=== PATIENT | male | born 1980 | race Caucasian/White ===

== ENCOUNTER 2016-09-15 09:13 | Inpatient (IN) | payer OTHER ==
[2016-09-15 09:21] VITALS: BMI 20.2
--- NOTE | 2016-09-15 11:21 | HP ---
COWS - Scale Resting Pulse: 0= [place] 80 or Below Sweatin=Flushed/Facial Moisture Restless Observation: 1= Difficult to Sit Still Pupil Size: 0= Normal to Room Light Bone or Joint Aches: 2= Severe Diffuse Aches Runny Nose/ Eye Tearin= Runny Nose/Eyes GI Upset > 30mins: 1= Stomach Cramp Tremor Observation: 2= Slight Tremor Visible Yawning Observation: 2= >3x During Session Anxiety or Irritability: 2=Irritable/Anxious Goose Flesh Skin: 3=Piloerection COWS Score: 17 CIWA Score - CIWA Score Nausea/Vomitin-Mild Nausea/No Vomiting Muscle Tremors: 4-Moderate,w/Arms Extend Anxiety: 4-Mod. Anxious/Guarded Agitation: 4-Moderately Restless Paroxysmal Sweats: 3 Orientation: 0-Oriented Tacttile Disturbances: 0-None Auditory Disturbances: 0-None Visual Disturbances: 0-None Headache: 0-None Present CIWA-Ar Total Score: 16 Admission ROS [facility] - HPI Chief Complaint: I need to get my life back and get it together. Allergies/Adverse Reactions: Allergies Allergy/AdvReac Type Severity Reaction Status Date / Time No Known Allergies Allergy Verified 09/15/16 09:43 History of Present Illness: pt is a 36yr old male with a history of alcohol and heroin dependence seeking detox for treatment. Exam Limitations: No Limitations - Ebola screening Have you traveled outside of the country in the last 21 days: No Have you had contact with anyone from an Ebola affected area: No Have you been sick,other than usual withdrawal symptoms: No Do you have a fever: No - Review of Systems Constitutional: Chills, Diaphoresis, Loss of Appetite, Night Sweats, Unintentional Wgt. Loss EENT: reports: Tearing, Nose Congestion Respiratory: reports: No Symptoms reported Cardiac: reports: No Symptoms Reported GI: reports: Constipated, Nausea, Poor Appetite, Poor Fluid Intake, Indigestion : reports: No Symptoms Reported Musculoskeletal: reports: Back Pain, Joint Pain, Muscle Pain Integumentary: reports: Flushing, Sweating Endocrine: reports: Excessive Sweating, Flushing, Intolerance to Cold, Intolerance to Heat Hematology: reports: No Symptoms Reported Psychiatric: reports: Judgement Intact, Mood/Affect Appropiate, Orientated x3, Agitated, Anxious Other Systems: Reviewed and Negative Patient History - Patient Medical History Hx Anemia: No Hx Asthma: No Hx Chronic Obstructive Pulmonary Disease (COPD): No Hx Cancer: No Hx Cardiac Disorders: No Hx Congestive Heart Failure: No Hx Hypertension: No Hx Hypercholesterolemia: No Hx Pacemaker: No HX Cerebrovascular Accident: No Hx Seizures: No Hx Dementia: No Hx Diabetes: No Hx Gastrointestinal Disorders: Yes (acid reflux) Hx Liver Disease: No Hx Genitourinary Disorders: No Hx Sexually Transmitted Disorders: No Hx Renal Disease (ESRD): No Hx Thyroid Disease: No Hx Human Immunodeficiency Virus (HIV): No (NEGATIVE HX) Hx Hepatitis C: No (negative) Hx Depression: Yes Hx Suicide Attempt: No Hx Bipolar Disorder: No Hx Schizophrenia: No - Patient Surgical History Past Surgical History: No Hx Neurologic Surgery: No Hx Cataract Extraction: No Hx Cardiac Surgery: No Hx Lung Surgery: No Hx Breast Surgery: No Hx Breast Biopsy: No Hx Abdominal Surgery: No Hx Appendectomy: No Hx Cholecystectomy: No Hx Genitourinary Surgery: No Hx Section: No Hx Orthopedic Surgery: No Anesthesia Reaction: No - PPD History Previous Implant?: Yes Documented Results: Negative w/proof Implanted On Prior [facility] Admission?: Yes Date: 02/03/16 Results: 0 mm PPD to be Administered?: No - Reproductive History Patient is a Female of Child Bearing Age (11 -55 yrs old): No - Smoking Cessation Smoking history: Current every day smoker Have you smoked in the past 12 months: Yes Aproximately how many cigarettes per day: 10 Cigars Per Day: 0 Hx Chewing Tobacco Use: No Initiated information on smoking cessation: Yes 'Breaking Loose' booklet given: 09/15/16 - Substance & Tx. History Hx Alcohol Use: Yes Hx Substance Use: Yes Substance Use Type: Alcohol, Cocaine, Heroin Hx Substance Use Treatment: Yes - Substances Abused Heroin Route: Injection Frequency: Daily Amount used: 10 bags Age of first use: 24 Date of Last Use: 09/15/16 Crack Route: Smoking Frequency: Daily Amount used: $20 Age of first use: 26 Date of Last Use: 09/14/16 Alcohol-beer/wine Route: Oral Frequency: Daily Amount used: 3-6 (12 oz.)/1 pt. Age of first use: 16 Date of Last Use: 09/14/16 Family Disease History - Family Disease History Family Disease History: CA: Grandparent (colon CA-), Father (??KIDNEY/ LUNG-) Admission Physical Exam [facility] - Vital Signs Vital Signs: Vital Signs - 24 hr 09/15/16 09:19 Temperature 98.0 F Pulse Rate 59 L Respiratory 18 Rate Blood Pressure 106/69 - Physical General Appearance: Yes: Appropriately Dressed, Moderate Distress, Thin, Tremorous, Irritable, Sweating, Anxious HEENTM: Yes: Normal Voice, Nasal Congestion, Rhinorrhea Respiratory: Yes: Lungs Clear, Normal Breath Sounds, No Respiratory Distress Neck: Yes: No masses,lesions,Nodules Breast: Yes: Within Normal Limits Cardiology: Yes: Regular Rhythm, Regular Rate, S1, S2 Abdominal: Yes: Normal Bowel Sounds, Non Tender, Soft Genitourinary: Yes: Within Normal Limits Back: Yes: Normal Inspection Musculoskeletal: Yes: full range of Motion, Gait Steady, Back pain Extremities: Yes: Normal Capillary Refill, Normal Inspection, Non-Tender, Tremors Neurological: Yes: Fully Oriented, Alert, Normal Response Integumentary: Yes: Normal Color, Diaphoresis, Track Med[place]ros Lymphatic: Yes: Within Normal Limits - Diagnostic (1) Cellulitis of right forearm Current Visit: Yes Status: Acute (2) Cocaine dependence, uncomplicated Current Visit: Yes Status: Chronic (3) Nicotine dependence Current Visit: Yes Status: Chronic Qualifiers: Nicotine product type: cigarettes Substance use status: uncomplicated Qualified Code(s): F17.210 - Nicotine dependence, cigarettes, uncomplicated (4) Opioid dependence with withdrawal Current Visit: Yes Status: Chronic Cleared for Admission [facility] - Detox or Rehab [facility] Level of Care: Medically Managed Detox Regimen/Protocol: Methadone/Valium [facility] Breath Alcohol Content Breath Alcohol Content: 0 Urine Drug Screen - Results Drug Screen Negative: No Urine Drug Screen Results: JOSSIE-Cocaine, OPI-Opiates, OXY-Oxycodone
[2016-09-15] MEDS ORDERED: MENTHOL/PHENOL 1 EACH UD MM PRN (11:23)
[2016-09-15] MEDS ORDERED: MAG HYDROX/AL HYDROX/SIMETH 30 ML UNIT-DOSE CUP PO PRN (11:23)
[2016-09-15] MEDS ORDERED: diphenhydrAMINE HCL 50 MG CAPSULE PO PRN (11:23)
[2016-09-15] MEDS ORDERED: guaiFENesin/D-METHORPHAN HB 10 ML UNIT-DOSE CUPS PO PRN (11:23)
[2016-09-15] MEDS ORDERED: MAGNESIUM CITRATE 300 ML BOTTLE PO PRN (11:23)
[2016-09-15] MEDS ORDERED: MAGNESIUM HYDROX 2400MG/30ML ORAL SUSPENSION 30 ML CUP PO PRN (11:23)
[2016-09-15] MEDS ORDERED: ACETAMINOPHEN 325 MG TABLET (FP) PO PRN (11:23)
[2016-09-15] MEDS ORDERED: LOPERAMIDE HCL 2 MG CAPSULE PO PRN (11:23)
[2016-09-15] MEDS ORDERED: NICOTINE POLACRILEX 4 MG GUM BUC PRN (11:23)
[2016-09-15] MEDS ORDERED: diazePAM 5 MG TABLET PO ONE (11:42)
[2016-09-15] MEDS ORDERED: METHADONE HCL 10 MG TABLET (FOR DETOX USE ONLY) PO ONE ×2 (11:42→23:00)
[2016-09-15] MEDS: diazePAM 5 MG TABLET PO SCH ×2 (13:42→22:23)
--- NOTE | 2016-09-15 15:28 | EKG ---
Test Reason : Blood Pressure : / mmHG Vent. Rate : 050 BPM Atrial Rate : 050 BPM P-R Int : 176 ms QRS Dur : 098 ms QT Int : 430 ms P-R-T Axes : 047 078 051 degrees QTc Int : 392 ms SINUS BRADYCARDIA OTHERWISE NORMAL ECG NO PREVIOUS ECGS AVAILABLE Confirmed by MAURO BERNSTEIN MD ([id number]) on 09/15/2016 3:27:58 PM Referred By: Confirmed By:MAURO BERNSTEIN MD
--- NOTE | 2016-09-15 16:51 | CONSULT ---
[facility] Psychiatric Consult - Data Date of interview: 09/15/16 Admission source: [facility] Identifying data: Another admission to [facility] for this 36 y/o male seeking detox treatment on for alcohol,heroin and cocaine dependence.Patient is without children,now domiciled and employed. Substance Abuse History: - Smoking Cessation. Smoking history: Current every day smoker. Have you smoked in the past 12 months: Yes. Aproximately how many cigarettes per day: 10. Cigars Per Day: 0. Hx Chewing Tobacco Use: No. Initiated information on smoking cessation: Yes. 'Breaking Loose' booklet given : 09/15/16. - Substance & Tx. History. Hx Alcohol Use: Yes. Hx Substance Use : Yes. Substance Use Type: Alcohol, Cocaine, Heroin. Hx Substance Use Treatment: Yes. - Substances Abused. Heroin. Route: Injection. Frequency : Daily. Amount used: 10 bags. Age of first use: 24. Date of Last Use: . Crack. Route: Smoking. Frequency: Daily. Amount used: $20. Age of first use: 26. Date of Last Use: 09/14/16. Alcohol-beer/wine. Route: Oral. Frequency: Daily. Amount used: 3-6 (12 oz.)/1 pt. Age of first use: 16. Date of Last Use: 09/14/16. Confirmed by the patient in this interview. Medical History: GERD. Psychiatric History: Patient,in this encounter,provided a totally different version of his longitudinal history.Mr Badillo simply denies ever having psychiatric issues.However,a previous encounter in January 2016 generated a history as follows (imported note for the purpose of establishing a more accurate profile : " first contact with a psychiatrist : 2002 during treatment in an inpatient rehabilitation center.Diagnosed with MDD and treated over past 10 years with various medications.Used to be on Zoloft and Remeron.Stopped taking these drugs because of intolerable side effects.Recently (less than two years ago) the patient was started by a private psychiatrist,Dr Loomis from [place],on bupropion and suboxone.Mr Badillo reportedly stopped seeing Dr Loomis (he was discharged from his service) and got switched to venlafaxine at [facility] by the [facility] psychiatrist about 8 months ago.Patient denies history of suicide attempts and he requests to continue treatment with effexor 37.5 mg daily in this hospital course ".In this presentation,Mr Aby decided to misrepresent his psychiatric history with the exception of complaint of chronic insomnia. Physical/Sexual Abuse/Trauma History: Patient denies. Additional Comment: Urine Drug Screen Results: JOSSIE-Cocaine, OPI-Opiates, OXY- Oxycodone.Noted. Mental Status Exam - Mental Status Exam Alert and Oriented to: Time, Place, Person Cognitive Function: Good Patient Appearance: Well Groomed Mood: Nervous, Hopeful Affect: Appropriate, Normal Range Patient Behavior: Fatigued, Appropriate, Cooperative Speech Pattern: Clear Voice Loudness: Normal Thought Process: Goal Oriented Thought Disorder: Not Present Hallucinations: Denies Suicidal Ideation: Denies Homicidal Ideation: Denies Insight/Judgement: Poor Sleep: Poorly, Difficulty falling asleep Appetite: Good Muscle strength/Tone: Normal Gait/Station: Normal Psychiatric Findings - Problem List ([place] 1, 2,3) (1) Alcohol dependence Current Visit: Yes Status: Acute (2) Cocaine dependence, uncomplicated Current Visit: Yes Status: Acute (3) Opioid dependence with withdrawal Current Visit: Yes Status: Acute (4) Nicotine dependence Current Visit: Yes Status: Acute Qualifiers: Nicotine product type: cigarettes Substance use status: uncomplicated Qualified Code(s): F17.210 - Nicotine dependence, cigarettes, uncomplicated (5) Substance induced mood disorder Current Visit: Yes Status: Acute - Initial Treatment Plan Initial Treatment Plan: Psychoeducation.Detoxification in progress.Zolpidem 10 mg po hs.Side effects/benefits discussed with patient.he agrees with this plan.Observation.
[2016-09-15] MEDS: diazePAM 5 MG TABLET PO PRN (19:10)
[2016-09-15 20:08] LABS: URINE APPEARANCE CLEAR; URINE BILIRUBIN NEGATIVE (NEGATIVE); URINE BLOOD NEGATIVE (NEGATIVE); URINE COLOR YELLOW; URINE GLUCOSE (UA) NEGATIVE (NEGATIVE); URINE KETONE NEGATIVE (NEGATIVE); URINE LEUK ESTERASE NEGATIVE (NEGATIVE); URINE NITRITE NEGATIVE (NEGATIVE); URINE PROTEIN NEGATIVE (NEGATIVE); URINE UROBILINOGEN NEGATIVE E.U./dl (0.2-1.0)
[2016-09-15] MEDS: THIAMINE HCL 100 MG TABLET (FP) PO SCH (22:23)
[2016-09-15] MEDS: ZOLPIDEM TARTRATE 5 MG TABLET PO PRN (22:25)
[2016-09-16] MEDS: diazePAM 5 MG TABLET PO SCH ×3 (05:30→22:22)
[2016-09-16] MEDS ORDERED: METHADONE HCL 10 MG TABLET (FOR DETOX USE ONLY) PO SCH (10:00)
[2016-09-16 10:09] LABS: URINE APPEARANCE CLEAR; URINE BILIRUBIN NEGATIVE (NEGATIVE); URINE BLOOD NEGATIVE (NEGATIVE); URINE COLOR LTYELLOW; URINE GLUCOSE (UA) NEGATIVE (NEGATIVE); URINE KETONE NEGATIVE (NEGATIVE); URINE LEUK ESTERASE NEGATIVE (NEGATIVE); URINE NITRITE NEGATIVE (NEGATIVE); URINE PROTEIN NEGATIVE (NEGATIVE); URINE UROBILINOGEN NEGATIVE E.U./dl (0.2-1.0)
[2016-09-16 10:13] LABS: MCH 27.6 pg (25.7-33.7); MCHC 32.5 g/dl (32.0-35.9); MEAN PLT VOLUME 8.9 fl (7.5-11.1); PLATELET COUNT 233 K/MM3 (134-434); RDW 13.7 % (11.9-15.9); WHITE BLOOD COUNT 6.2 K/mm3 (4.0-10.0)
[2016-09-16] MEDS: diazePAM 5 MG TABLET PO PRN ×2 (10:19→17:42)
[2016-09-16] MEDS: PRENATAL VITAMINS W/ FOLIC ACID TABLET (FP) PO SCH (10:19)
[2016-09-16] MEDS: PANTOPRAZOLE 40 MG TABLET (FP) PO SCH (10:19)
[2016-09-16] MEDS: SULFAMETHOXAZOLE/TRIMETHOPRIM 800MG/160MG D.S. TABLET PO SCH (10:20)
[2016-09-16] MEDS: NICOTINE 21 MG/24 HOURS TOPICAL PATCH TD SCH (10:20)
[2016-09-16 11:04] LABS: ALK PHOS 78 U/L (45-117); ANION GAP 7 (8-16); BILIRUBIN,TOTAL 0.4 mg/dL (0.2-1.0); CALCIUM 9.2 mg/dL (8.5-10.1); CO2 29 mmol/L (21-32); CREATININE 0.8 mg/dL (0.7-1.3); GLUCOSE,RANDOM 89 mg/dL (74-106); SGOT/AST 19 U/L (15-37); SGPT/ALT 21 U/L (12-78); TOT PROT 7.5 g/dl (6.4-8.2)
--- NOTE | 2016-09-16 12:20 | PN ---
[facility] CIWA - CIWA Score Nausea/Vomitin-Mild Nausea/No Vomiting Muscle Tremors: 4-Moderate,w/Arms Extend Anxiety: 4-Mod. Anxious/Guarded Agitation: 4-Moderately Restless Paroxysmal Sweats: 1-Minimal Palms Moist Orientation: 0-Oriented Tacttile Disturbances: 3-Moderate Itch/Numb/Burn Auditory Disturbances: 0-None Visual Disturbances: 0-None Headache: 0-None Present CIWA-Ar Total Score: 17 S COWS - Scale Resting Pulse: 0= [place] 80 or Below Sweatin= Chills/Flushing Restless Observation: 3= Extraneous Movement Pupil Size: 2= Moderately Dilated Bone or Joint Aches: 4=Acute Joint/Muscle Pain Runny Nose/ Eye Tearin= Runny Nose/Eyes GI Upset > 30mins: 2= Nausea/Diarrhea Tremor Observation of Outstretched Hands: 2= Slight Tremor Visible Yawning Observation: 1= 1-2x During Session Anxiety or Irritability: 2=Irritable/Anxious Goose Flesh Skin: 0=Smooth Skin COWS Score: 19 [facility] Progress Note (SOAP) Subjective: ANXIETY,MUSCLE ACHES/SPASMS,NAUSEA,SWEATS,SNEEZING,RUNNY NOSE,IRRITABILITY. Objective: 09/16/16 12:19 Vital Signs Temperature 97.9 F 09/16/16 09:29 Pulse Rate 70 09/16/16 09:29 Respiratory Rate 18 09/16/16 09:29 Blood Pressure 111/70 09/16/16 09:29 O2 Sat by Pulse Oximetry (%) Laboratory Last Values WBC 6.2 K/mm3 (4.0-10.0) 09/16/16 06:00 RBC 5.24 M/mm3 (4.00-5.60) 09/16/16 06:00 Hgb 14.5 GM/dL (11.7-16.9) 09/16/16 06:00 Hct 44.5 % (35.4-49) 09/16/16 06:00 MCV 85.0 fl (80-96) 09/16/16 06:00 MCHC 32.5 g/dl (32.0-35.9) 09/16/16 06:00 RDW 13.7 % (11.9-15.9) 09/16/16 06:00 Plt Count 233 K/MM3 (134-434) 09/16/16 06:00 MPV 8.9 fl (7.5-11.1) 09/16/16 06:00 Sodium 138 mmol/L (136-145) 09/16/16 06:00 Potassium 4.6 mmol/L (3.5-5.1) 09/16/16 06:00 Chloride 102 mmol/L (98-107) 09/16/16 06:00 Carbon Dioxide 29 mmol/L (21-32) 09/16/16 06:00 Anion Gap 7 (8-16) L 09/16/16 06:00 BUN 14 mg/dL (7-18) 09/16/16 06:00 Creatinine 0.8 mg/dL (0.7-1.3) 09/16/16 06:00 Creat Clearance w eGFR > 60 (>60) 09/16/16 06:00 Random Glucose 89 mg/dL (74-106) 09/16/16 06:00 Calcium 9.2 mg/dL (8.5-10.1) 09/16/16 06:00 Total Bilirubin 0.4 mg/dL (0.2-1.0) 09/16/16 06:00 AST 19 U/L (15-37) 09/16/16 06:00 ALT 21 U/L (12-78) 09/16/16 06:00 Alkaline Phosphatase 78 U/L (45-117) 09/16/16 06:00 Total Protein 7.5 g/dl (6.4-8.2) 09/16/16 06:00 Albumin 4.0 g/dl (3.4-5.0) 09/16/16 06:00 Urine Color Ltyellow 09/16/16 08:00 Urine Appearance Clear 09/16/16 08:00 Urine pH 7.0 (5.0-8.0) D 09/16/16 08:00 Ur Specific [place] 1.014 (1.001-1.035) 09/16/16 08:00 Urine Protein Negative (NEGATIVE) 09/16/16 08:00 Urine Glucose (UA) Negative (NEGATIVE) 09/16/16 08:00 Urine Ketones Negative (NEGATIVE) 09/16/16 08:00 Urine Blood Negative (NEGATIVE) 09/16/16 08:00 Urine Nitrite Negative (NEGATIVE) 09/16/16 08:00 Urine Bilirubin Negative (NEGATIVE) 09/16/16 08:00 Urine Urobilinogen Negative E.U./dl (0.2-1.0) 09/16/16 08:00 Ur Leukocyte Esterase Negative (NEGATIVE) 09/16/16 08:00 Hepatitis C Antibody 0.2 s/co ratio (0.0-0.9) 09/15/16 11:00 Assessment: 09/16/16 12:19 WITHDRAWAL SX Plan: CONTINUE DETOX FLEXERIL PRN ACTIFED PRN
[2016-09-16] MEDS: THIAMINE HCL 100 MG TABLET (FP) PO SCH (22:22)
[2016-09-16] MEDS: ZOLPIDEM TARTRATE 5 MG TABLET PO PRN (22:22)
[2016-09-17] MEDS: diazePAM 5 MG TABLET PO PRN ×3 (05:27→17:12)
[2016-09-17] MEDS: IBUPROFEN 400 MG TABLET (FP) PO PRN ×2 (07:40→17:13)
[2016-09-17] MEDS: P-EPHED 60MG/TRIPROLIDI 2.5MG TABLET PO PRN (08:55)
[2016-09-17] MEDS: SULFAMETHOXAZOLE/TRIMETHOPRIM 800MG/160MG D.S. TABLET PO SCH (10:28)
[2016-09-17] MEDS: PRENATAL VITAMINS W/ FOLIC ACID TABLET (FP) PO SCH (10:28)
[2016-09-17] MEDS: NICOTINE 21 MG/24 HOURS TOPICAL PATCH TD SCH (10:28)
[2016-09-17] MEDS: PANTOPRAZOLE 40 MG TABLET (FP) PO SCH (10:29)
[2016-09-17] MEDS: METHADONE HCL 5 MG TABLET (FOR DETOX USE ONLY) PO SCH (10:29)
[2016-09-17] MEDS: diazePAM 5 MG TABLET PO SCH ×2 (10:29→22:33)
--- NOTE | 2016-09-17 11:11 | PN ---
[facility] CIWA - CIWA Score Nausea/Vomitin Muscle Tremors: 4-Moderate,w/Arms Extend Anxiety: 4-Mod. Anxious/Guarded Agitation: 4-Moderately Restless Paroxysmal Sweats: 3 Orientation: 0-Oriented Tacttile Disturbances: 0-None Auditory Disturbances: 0-None Visual Disturbances: 0-None Headache: 0-None Present CIWA-Ar Total Score: 18 [facility] COWS - Scale Resting Pulse: 1= [place] 81-100 Sweatin=Flushed/Facial Moisture Restless Observation: 1= Difficult to Sit Still Pupil Size: 0= Normal to Room Light Bone or Joint Aches: 2= Severe Diffuse Aches Runny Nose/ Eye Tearin= Runny Nose/Eyes GI Upset > 30mins: 2= Nausea/Diarrhea Tremor Observation of Outstretched Hands: 2= Slight Tremor Visible Yawning Observation: 1= 1-2x During Session Anxiety or Irritability: 2=Irritable/Anxious Goose Flesh Skin: 3=Piloerection COWS Score: 18 S Progress Note (SOAP) Subjective: Sweating,interrupted sleep,anxiety,irma-erection,runny nose,body aches,restless. Objective: 09/17/16 11:10 Last Vital Signs Temp Pulse Resp BP Pulse Ox 96.7 F L 82 18 123/78 09/17/16 09:13 09/17/16 09:13 09/17/16 09:13 09/17/16 09:13 Laboratory Tests 09/15/16 09/15/16 09/16/16 11:00 13:00 06:00 WBC 6.2 RBC 5.24 Hgb 14.5 Hct 44.5 MCV 85.0 MCHC 32.5 RDW 13.7 Plt Count 233 MPV 8.9 Sodium Potassium Chloride Carbon Dioxide Anion Gap BUN Creatinine Creat Clearance w eGFR Random Glucose Calcium Total Bilirubin AST ALT Alkaline Phosphatase Total Protein Albumin Urine Color Yellow Urine Appearance Clear Urine pH 5.0 D Ur Specific [place] 1.016 Urine Protein Negative Urine Glucose (UA) Negative Urine Ketones Negative Urine Blood Negative Urine Nitrite Negative Urine Bilirubin Negative Urine Urobilinogen Negative Ur Leukocyte Esterase Negative RPR Titer Hepatitis C Antibody 0.2 09/16/16 09/16/16 09/16/16 06:00 06:00 08:00 WBC RBC Hgb Hct MCV MCHC RDW Plt Count MPV Sodium 138 Potassium 4.6 Chloride 102 Carbon Dioxide 29 Anion Gap 7 L BUN 14 Creatinine 0.8 Creat Clearance w eGFR > 60 Random Glucose 89 Calcium 9.2 Total Bilirubin 0.4 AST 19 ALT 21 Alkaline Phosphatase 78 Total Protein 7.5 Albumin 4.0 Urine Color Ltyellow Urine Appearance Clear Urine pH 7.0 D Ur Specific [place] 1.014 Urine Protein Negative Urine Glucose (UA) Negative Urine Ketones Negative Urine Blood Negative Urine Nitrite Negative Urine Bilirubin Negative Urine Urobilinogen Negative Ur Leukocyte Esterase Negative RPR Titer Nonreactive Hepatitis C Antibody labs noted Assessment: 09/17/16 11:10 Withdrawal sx. Plan: Continue detox
[2016-09-17] MEDS: THIAMINE HCL 100 MG TABLET (FP) PO SCH (22:33)
[2016-09-17] MEDS: ZOLPIDEM TARTRATE 5 MG TABLET PO PRN (22:33)
[2016-09-18] MEDS: diazePAM 5 MG TABLET PO PRN (05:32)
[2016-09-18] MEDS: P-EPHED 60MG/TRIPROLIDI 2.5MG TABLET PO PRN (06:39)
[2016-09-18] MEDS: IBUPROFEN 400 MG TABLET (FP) PO PRN ×2 (06:41→18:02)
[2016-09-18] MEDS: PANTOPRAZOLE 40 MG TABLET (FP) PO SCH (10:44)
[2016-09-18] MEDS: PRENATAL VITAMINS W/ FOLIC ACID TABLET (FP) PO SCH (10:44)
[2016-09-18] MEDS: diazePAM 5 MG TABLET PO SCH ×2 (10:44→22:36)
[2016-09-18] MEDS: METHADONE HCL 5 MG TABLET (FOR DETOX USE ONLY) PO SCH (10:44)
[2016-09-18] MEDS: NICOTINE 21 MG/24 HOURS TOPICAL PATCH TD SCH (10:44)
[2016-09-18] MEDS: SULFAMETHOXAZOLE/TRIMETHOPRIM 800MG/160MG D.S. TABLET PO SCH (10:44)
--- NOTE | 2016-09-18 12:47 | PN ---
S Progress Note (SOAP) Subjective: Body aches, Headache, Interrupted sleep, Tremors. Objective: PT. & O X 3, OBSERVED AMBULATING ON UNIT. 09/18/16 12:46 Vital Signs Temperature 97.1 F L 09/18/16 09:38 Pulse Rate 70 09/18/16 09:38 Respiratory Rate 18 09/18/16 09:38 Blood Pressure 111/74 09/18/16 09:38 O2 Sat by Pulse Oximetry (%) Laboratory Last Values WBC 6.2 K/mm3 (4.0-10.0) 09/16/16 06:00 RBC 5.24 M/mm3 (4.00-5.60) 09/16/16 06:00 Hgb 14.5 GM/dL (11.7-16.9) 09/16/16 06:00 Hct 44.5 % (35.4-49) 09/16/16 06:00 MCV 85.0 fl (80-96) 09/16/16 06:00 MCHC 32.5 g/dl (32.0-35.9) 09/16/16 06:00 RDW 13.7 % (11.9-15.9) 09/16/16 06:00 Plt Count 233 K/MM3 (134-434) 09/16/16 06:00 MPV 8.9 fl (7.5-11.1) 09/16/16 06:00 Sodium 138 mmol/L (136-145) 09/16/16 06:00 Potassium 4.6 mmol/L (3.5-5.1) 09/16/16 06:00 Chloride 102 mmol/L (98-107) 09/16/16 06:00 Carbon Dioxide 29 mmol/L (21-32) 09/16/16 06:00 Anion Gap 7 (8-16) L 09/16/16 06:00 BUN 14 mg/dL (7-18) 09/16/16 06:00 Creatinine 0.8 mg/dL (0.7-1.3) 09/16/16 06:00 Creat Clearance w eGFR > 60 (>60) 09/16/16 06:00 Random Glucose 89 mg/dL (74-106) 09/16/16 06:00 Calcium 9.2 mg/dL (8.5-10.1) 09/16/16 06:00 Total Bilirubin 0.4 mg/dL (0.2-1.0) 09/16/16 06:00 AST 19 U/L (15-37) 09/16/16 06:00 ALT 21 U/L (12-78) 09/16/16 06:00 Alkaline Phosphatase 78 U/L (45-117) 09/16/16 06:00 Total Protein 7.5 g/dl (6.4-8.2) 09/16/16 06:00 Albumin 4.0 g/dl (3.4-5.0) 09/16/16 06:00 Urine Color Ltyellow 09/16/16 08:00 Urine Appearance Clear 09/16/16 08:00 Urine pH 7.0 (5.0-8.0) D 09/16/16 08:00 Ur Specific [place] 1.014 (1.001-1.035) 09/16/16 08:00 Urine Protein Negative (NEGATIVE) 09/16/16 08:00 Urine Glucose (UA) Negative (NEGATIVE) 09/16/16 08:00 Urine Ketones Negative (NEGATIVE) 09/16/16 08:00 Urine Blood Negative (NEGATIVE) 09/16/16 08:00 Urine Nitrite Negative (NEGATIVE) 09/16/16 08:00 Urine Bilirubin Negative (NEGATIVE) 09/16/16 08:00 Urine Urobilinogen Negative E.U./dl (0.2-1.0) 09/16/16 08:00 Ur Leukocyte Esterase Negative (NEGATIVE) 09/16/16 08:00 RPR Titer Nonreactive (NONREACTIVE) 09/16/16 06:00 Hepatitis C Antibody 0.2 s/co ratio (0.0-0.9) 09/15/16 11:00 LABS NOTED. Assessment: 09/18/16 12:47 WITHDRAWAL SYMPTOMS. Plan: CONTINUE DETOX.
[2016-09-18] MEDS: hydrOXYzine PAMOATE 50 MG CAPSULE (FP) PO PRN ×3 (13:43→22:35)
[2016-09-18] MEDS: THIAMINE HCL 100 MG TABLET (FP) PO SCH (22:36)
[2016-09-19] MEDS: hydrOXYzine PAMOATE 50 MG CAPSULE (FP) PO PRN ×4 (05:05→22:28)
[2016-09-19] MEDS: P-EPHED 60MG/TRIPROLIDI 2.5MG TABLET PO PRN (05:06)
--- NOTE | 2016-09-19 09:09 | PN ---
[facility] Progress Note (SOAP) Subjective: sweating,interrupted sleep,restless Objective: 09/19/16 09:08 Vital Signs - 8 hr 09/19/16 09/19/16 03:30 06:35 Temperature 96.7 F L Pulse Rate 55 L Respiratory 18 18 Rate Blood Pressure 101/65 Laboratory Tests 09/15/16 09/15/16 09/16/16 11:00 13:00 06:00 WBC 6.2 RBC 5.24 Hgb 14.5 Hct 44.5 MCV 85.0 MCHC 32.5 RDW 13.7 Plt Count 233 MPV 8.9 Sodium Potassium Chloride Carbon Dioxide Anion Gap BUN Creatinine Creat Clearance w eGFR Random Glucose Calcium Total Bilirubin AST ALT Alkaline Phosphatase Total Protein Albumin Urine Color Yellow Urine Appearance Clear Urine pH 5.0 D Ur Specific [place] 1.016 Urine Protein Negative Urine Glucose (UA) Negative Urine Ketones Negative Urine Blood Negative Urine Nitrite Negative Urine Bilirubin Negative Urine Urobilinogen Negative Ur Leukocyte Esterase Negative RPR Titer Hepatitis C Antibody 0.2 09/16/16 09/16/16 09/16/16 06:00 06:00 08:00 WBC RBC Hgb Hct MCV MCHC RDW Plt Count MPV Sodium 138 Potassium 4.6 Chloride 102 Carbon Dioxide 29 Anion Gap 7 L BUN 14 Creatinine 0.8 Creat Clearance w eGFR > 60 Random Glucose 89 Calcium 9.2 Total Bilirubin 0.4 AST 19 ALT 21 Alkaline Phosphatase 78 Total Protein 7.5 Albumin 4.0 Urine Color Ltyellow Urine Appearance Clear Urine pH 7.0 D Ur Specific [place] 1.014 Urine Protein Negative Urine Glucose (UA) Negative Urine Ketones Negative Urine Blood Negative Urine Nitrite Negative Urine Bilirubin Negative Urine Urobilinogen Negative Ur Leukocyte Esterase Negative RPR Titer Nonreactive Hepatitis C Antibody labs noted Assessment: 09/19/16 09:09 withdrawal sx. Plan: continue detox
[2016-09-19] MEDS ORDERED: diazePAM 5 MG TABLET PO SCH (10:00)
[2016-09-19] MEDS ORDERED: METHADONE HCL 10 MG TABLET (FOR DETOX USE ONLY) PO SCH (10:00)
[2016-09-19] MEDS: PANTOPRAZOLE 40 MG TABLET (FP) PO SCH (10:38)
[2016-09-19] MEDS: PRENATAL VITAMINS W/ FOLIC ACID TABLET (FP) PO SCH (10:38)
[2016-09-19] MEDS: SULFAMETHOXAZOLE/TRIMETHOPRIM 800MG/160MG D.S. TABLET PO SCH (10:38)
[2016-09-19] MEDS: NICOTINE 21 MG/24 HOURS TOPICAL PATCH TD SCH (10:38)
[2016-09-19] MEDS ORDERED: CYCLOBENZAPRINE HCL 10 MG TABLET (FP) PO ONE (11:06)
[2016-09-19] MEDS: CYCLOBENZAPRINE HCL 10 MG TABLET (FP) PO SCH ×2 (14:04→22:28)
[2016-09-19] MEDS: THIAMINE HCL 100 MG TABLET (FP) PO SCH (22:28)
[2016-09-20] MEDS: hydrOXYzine PAMOATE 50 MG CAPSULE (FP) PO PRN (05:30)
[2016-09-20] MEDS: CYCLOBENZAPRINE HCL 10 MG TABLET (FP) PO SCH (05:30)
[2016-09-20] MEDS ORDERED: METHADONE HCL 5 MG TABLET (FOR DETOX USE ONLY) PO SCH (06:00)
[2016-09-20 06:23] VITALS: BP 101/67; PULSE 67; TEMP 96.8
--- NOTE | 2016-09-20 12:55 | DS ---
[facility] Detox Discharge Summary Admission Date: 09/15/16 Discharge Date: 09/20/16 - History Present History: Alcohol Dependence, Cocaine Dependence, Opioid Dependence Pertinent Past History: GERD - Physical Exam Results Vital Signs: Vital Signs Temperature 96.8 F L 09/20/16 06:22 Pulse Rate 67 09/20/16 06:22 Respiratory Rate 16 09/20/16 06:22 Blood Pressure 101/67 09/20/16 06:22 O2 Sat by Pulse Oximetry (%) Pertinent Admission Physical Exam Findings: Withdrawal symptoms Laboratory Tests 09/15/16 09/15/16 09/16/16 11:00 13:00 06:00 WBC 6.2 RBC 5.24 Hgb 14.5 Hct 44.5 MCV 85.0 MCHC 32.5 RDW 13.7 Plt Count 233 MPV 8.9 Sodium Potassium Chloride Carbon Dioxide Anion Gap BUN Creatinine Creat Clearance w eGFR Random Glucose Calcium Total Bilirubin AST ALT Alkaline Phosphatase Total Protein Albumin Urine Color Yellow Urine Appearance Clear Urine pH 5.0 D Ur Specific [place] 1.016 Urine Protein Negative Urine Glucose (UA) Negative Urine Ketones Negative Urine Blood Negative Urine Nitrite Negative Urine Bilirubin Negative Urine Urobilinogen Negative Ur Leukocyte Esterase Negative RPR Titer Hepatitis C Antibody 0.2 09/16/16 09/16/16 09/16/16 06:00 06:00 08:00 WBC RBC Hgb Hct MCV MCHC RDW Plt Count MPV Sodium 138 Potassium 4.6 Chloride 102 Carbon Dioxide 29 Anion Gap 7 L BUN 14 Creatinine 0.8 Creat Clearance w eGFR > 60 Random Glucose 89 Calcium 9.2 Total Bilirubin 0.4 AST 19 ALT 21 Alkaline Phosphatase 78 Total Protein 7.5 Albumin 4.0 Urine Color Ltyellow Urine Appearance Clear Urine pH 7.0 D Ur Specific [place] 1.014 Urine Protein Negative Urine Glucose (UA) Negative Urine Ketones Negative Urine Blood Negative Urine Nitrite Negative Urine Bilirubin Negative Urine Urobilinogen Negative Ur Leukocyte Esterase Negative RPR Titer Nonreactive Hepatitis C Antibody Labs noted - Treatment Hospital Course: Detox Protocol Followed, Detoxed Safely, Responded well, Discharged Condition Good - Medication Discharge Medications: Ambulatory Orders Venlafaxine HCl ER [Effexor Xr -] 37.5 mg PO DAILY 09/15/16 - Diagnosis (1) Cocaine dependence, uncomplicated Status: Chronic (2) Nicotine dependence Status: Chronic Qualifiers: Nicotine product type: cigarettes Substance use status: uncomplicated Qualified Code(s): F17.210 - Nicotine dependence, cigarettes, uncomplicated (3) Opioid dependence with withdrawal Status: Acute (4) Depressive disorder Status: Chronic (5) GERD (gastroesophageal reflux disease) Status: Chronic (6) Alcohol dependence with withdrawal, uncomplicated Status: Acute - AMA Did Patient Leave Against Medical Advice: No
== END 2016-09-20 09:41 | disposition home or self-care (01) | DRG 773 ==
LOC: YASAS 09:13 → Y3N 11:38
PROVIDERS: ADMIT Internal Medicine; ATTEND Internal Medicine
PROC: HZ2ZZZZ Detoxification Services for Substance Abuse Treatment (ICD-10-PCS; principal; 2016-09-20)
DX: F11.23 Opioid dependence with withdrawal (principal); F10.230 Alcohol dependence with withdrawal, uncomplicated; F14.20 Cocaine dependence, uncomplicated; F17.210 Nicotine dependence, cigarettes, uncomplicated; F33.9 Major depressive disorder, recurrent, unspecified; F19.24 Other psychoactive substance dependence with psychoactive substance-induced mood disorder; K21.9 Gastro-esophageal reflux disease without esophagitis
CPT/HCPCS: 36415; 80053; 81003; 85027; 86593; 93005; 93010

== ENCOUNTER 2016-10-26 08:58 | Inpatient (IN) | payer OTHER ==
[2016-10-26 09:27] VITALS: BMI 20.9
--- NOTE | 2016-10-26 11:30 | HP ---
COWS - Scale Resting Pulse: 0= [place] 80 or Below Sweatin=Flushed/Facial Moisture Restless Observation: 3= Extraneous Movement Pupil Size: 2= Moderately Dilated Bone or Joint Aches: 2= Severe Diffuse Aches Runny Nose/ Eye Tearin= Runny Nose/Eyes GI Upset > 30mins: 3= Vomiting/Diarrhea Tremor Observation: 2= Slight Tremor Visible Yawning Observation: 2= >3x During Session Anxiety or Irritability: 2=Irritable/Anxious Goose Flesh Skin: 0=Smooth Skin COWS Score: 20 CIWA Score - CIWA Score Nausea/Vomitin Muscle Tremors: 3 Anxiety: 3 Agitation: 3 Paroxysmal Sweats: 1-Minimal Palms Moist Orientation: 0-Oriented Tacttile Disturbances: 2-Mild Itch/Numbness/Burn Auditory Disturbances: 2-Mild Harshness/Frighten Visual Disturbances: 2-Mild Sensitivity Headache: 2-Mild CIWA-Ar Total Score: 21 Admission ROS BHS - HPI Chief Complaint: i need help to stop using heroin and alcohol dependence,withdrawal syndrome, last detox 09/15/16 to 09/20/16 low back pain anxiety and depression nicotine dependence longest period of sobriety 18 months Allergies/Adverse Reactions: Allergies Allergy/AdvReac Type Severity Reaction Status Date / Time No Known Allergies Allergy Verified 10/26/16 11:40 History of Present Illness: this 36 years old male with heroin and alcohol dependence,withdrawal symptom, last detox 09/15/16 yo 09/20/16 for detox mentioned Exam Limitations: No Limitations - Ebola screening Have you traveled outside of the country in the last 21 days: No Have you had contact with anyone from an Ebola affected area: No Have you been sick,other than usual withdrawal symptoms: No - Review of Systems Constitutional: Chills, Diaphoresis, Loss of Appetite, Malaise, Night Sweats, Changes in sleep, Weakness EENT: reports: Tearing, Nose Congestion Respiratory: reports: No Symptoms reported Cardiac: reports: No Symptoms Reported GI: reports: Nausea, Vomiting, Indigestion, Abdominal cramping : reports: No Symptoms Reported Musculoskeletal: reports: Back Pain, Joint Pain, Muscle Pain, Joint Stiffness Integumentary: reports: Dryness Endocrine: reports: No Symptoms Reported Hematology: reports: No Symptoms Reported Psychiatric: reports: Anxious, Depressed Patient History - Patient Medical History Hx Anemia: No Hx Asthma: No Hx Chronic Obstructive Pulmonary Disease (COPD): No Hx Cancer: No Hx Cardiac Disorders: No Hx Congestive Heart Failure: No Hx Hypertension: No Hx Hypercholesterolemia: No Hx Pacemaker: No HX Cerebrovascular Accident: No Hx Seizures: No Hx Dementia: No Hx Diabetes: No Hx Gastrointestinal Disorders: Yes (acid reflux) Hx Liver Disease: No Hx Genitourinary Disorders: No Hx Sexually Transmitted Disorders: No Hx Renal Disease (ESRD): No Hx Thyroid Disease: No Hx Human Immunodeficiency Virus (HIV): No (last 09/04 negative) Hx Hepatitis C: No (negative) Hx Depression: Yes (no med) Hx Suicide Attempt: No Hx Bipolar Disorder: No Hx Schizophrenia: No Other Medical History: no suicidal,no homicidal - Patient Surgical History Past Surgical History: No Hx Neurologic Surgery: No Hx Cataract Extraction: No Hx Cardiac Surgery: No Hx Lung Surgery: No Hx Breast Surgery: No Hx Breast Biopsy: No Hx Abdominal Surgery: No Hx Appendectomy: No Hx Cholecystectomy: No Hx Genitourinary Surgery: No Hx Section: No Hx Orthopedic Surgery: No Anesthesia Reaction: No - PPD History Previous Implant?: Yes Documented Results: Negative w/proof Implanted On Prior [facility] Admission?: Yes Date: 02/03/16 Results: 0 mm PPD to be Administered?: No - Smoking Cessation Smoking history: Current every day smoker Have you smoked in the past 12 months: Yes Aproximately how many cigarettes per day: 10 Cigars Per Day: 0 Hx Chewing Tobacco Use: No Initiated information on smoking cessation: Yes 'Breaking Loose' booklet given: 10/26/16 - Substance & Tx. History Hx Alcohol Use: Yes Hx Substance Use: Yes Substance Use Type: Alcohol, Heroin Hx Substance Use Treatment: Yes (last [facility] 09/15/16 to 09/20/16) - Substances Abused Heroin Route: Injection Frequency: Daily Amount used: 10 BAGS Age of first use: 24 Date of Last Use: 10/25/16 Alcohol Route: Oral Frequency: Daily Amount used: 5 VODKA DRINKS Age of first use: 15 Date of Last Use: 10/25/16 Family Disease History - Family Disease History Family Disease History: CA: Grandparent (colon CA-), Father (??KIDNEY/ LUNG-) Admission Physical Exam BHS - Vital Signs Vital Signs: Vital Signs - 24 hr 10/26/16 09:19 Temperature 98.6 F Pulse Rate 66 Respiratory 20 Rate Blood Pressure 123/73 - Physical General Appearance: Yes: Moderate Distress, Tremorous, Irritable, Sweating, Anxious HEENTM: Yes: Normal ENT Inspection, Pharynx Normal, Nasal Congestion, Rhinorrhea Respiratory: Yes: Lungs Clear, Normal Breath Sounds, No Respiratory Distress Neck: Yes: Within Normal Limits Breast: Yes: Within Normal Limits Cardiology: Yes: Within Normal Limits, Regular Rhythm, Regular Rate, S1, S2 Abdominal: Yes: Within Normal Limits, Normal Bowel Sounds, Non Tender, Flat, Soft Genitourinary: Yes: Within Normal Limits Back: Yes: Normal Inspection, Muscle Spasm Musculoskeletal: Yes: Back pain, Joint Stiffness, Muscle Pain Extremities: Yes: Normal Inspection, Normal Range of Motion, Tremors Neurological: Yes: learning support specialist II-XII NML intact, Fully Oriented, Alert, Motor Strength 5/5 Integumentary: Yes: Dry Lymphatic: Yes: Within Normal Limits - Diagnostic (1) Alcohol dependence with withdrawal, uncomplicated Current Visit: No Status: Acute (2) Opioid dependence with withdrawal Current Visit: No Status: Acute (3) GERD (gastroesophageal reflux disease) Current Visit: No Status: Chronic (4) Nicotine dependence Current Visit: No Status: Chronic Qualifiers: Nicotine product type: cigarettes Substance use status: uncomplicated Qualified Code(s): F17.210 - Nicotine dependence, cigarettes, uncomplicated (5) Anxiety and depression Current Visit: Yes Status: Acute Cleared for Admission [facility] - Detox or Rehab [facility] Level of Care: Medically Managed Detox Regimen/Protocol: Methadone/Librium [facility] Breath Alcohol Content Breath Alcohol Content: 0 Urine Drug Screen - Results Drug Screen Negative: No Urine Drug Screen Results: OPI-Opiates, OXY-Oxycodone
[2016-10-26] MEDS ORDERED: LOPERAMIDE HCL 2 MG CAPSULE PO PRN (12:00)
[2016-10-26] MEDS ORDERED: MAG HYDROX/AL HYDROX/SIMETH 30 ML UNIT-DOSE CUP PO PRN (12:00)
[2016-10-26] MEDS ORDERED: MAGNESIUM HYDROX 2400MG/30ML ORAL SUSPENSION 30 ML CUP PO PRN (12:00)
[2016-10-26] MEDS ORDERED: guaiFENesin/D-METHORPHAN HB 10 ML UNIT-DOSE CUPS PO PRN (12:00)
[2016-10-26] MEDS ORDERED: ACETAMINOPHEN 325 MG TABLET (FP) PO PRN (12:00)
[2016-10-26] MEDS ORDERED: MENTHOL/PHENOL 1 EACH UD MM PRN (12:00)
[2016-10-26] MEDS ORDERED: MAGNESIUM CITRATE 300 ML BOTTLE PO PRN (12:00)
[2016-10-26] MEDS ORDERED: METHADONE HCL 10 MG TABLET (FOR DETOX USE ONLY) PO ONE ×2 (13:03→23:00)
[2016-10-26] MEDS ORDERED: chlordiazePOXIDE HCL 25 MG CAPSULE PO ONE (13:03)
[2016-10-26] MEDS: NICOTINE 21 MG/24 HOURS TOPICAL PATCH TD SCH (13:55)
--- NOTE | 2016-10-26 13:59 | CONSULT ---
[facility] Psychiatric Consult - Data Date of interview: 10/26/16 Admission source: This is 36 years old male withg no psychiatric hospitalization history inbt Identifying data: OPIOIDS, Cannabis, Xanax, Alxcohol and Nicotine Substance Abuse History: Smoking history: Current every day smoker. Have you smoked in the past 12 months: Yes. Aproximately how many cigarettes per day: 10. Cigars Per Day: 0. Hx Chewing Tobacco Use: No. Initiated information on smoking cessation: Yes. 'Breaking Loose' booklet given: 10/26/16. - Substance & Tx. History. Hx Alcohol Use: Yes. Hx Substance Use: Yes. Substance Use Type : Alcohol, Heroin. Hx Substance Use Treatment: Yes (last [facility] 09/15/16 to 09/20). - Substances Abused. Heroin. Route: Injection. Frequency: Daily. Amount used: 10 BAGS. Age of first use: 24. Date of Last Use: 10/25/16. Alcohol. Route: Oral. Frequency: Daily. Amount used: 5 VODKA DRINKS. Age of first use: 15. Date of Last Use: 10/25/16 Medical History: Denies Psychiatric History: Denies, as per computer carries MDD, reports no9 psychiatric hospitalization history, reports no medications taking prior to admission Physical/Sexual Abuse/Trauma History: Denies Additional Comment: Obsercvation. Detox Unit Carte Protocol Mental Status Exam - Mental Status Exam Alert and Oriented to: Person Cognitive Function: Fair Patient Appearance: Well Groomed Mood: Anxious Affect: Mood Congruent Patient Behavior: Cooperative Speech Pattern: Appropriate Voice Loudness: Normal Thought Process: Goal Oriented Thought Disorder: Being Controlled Hallucinations: Denies Suicidal Ideation: Denies Homicidal Ideation: Denies Insight/Judgement: Fair Sleep: Difficulty falling asleep Appetite: Fair Muscle strength/Tone: Normal Gait/Station: Normal Additional Comments: Obsercvation. Detox Unit Carte Protocol Psychiatric Findings - Problem List ([place] 1, 2,3) (1) Anxiety and depression Current Visit: Yes Status: Acute (2) Alcohol dependence Current Visit: No Status: Acute (3) Alcohol dependence with withdrawal, uncomplicated Current Visit: No Status: Acute (4) Cannabis abuse Current Visit: No Status: Acute (5) Cellulitis of right forearm Current Visit: No Status: Acute (6) Opiate withdrawal Current Visit: No Status: Acute (7) Opioid dependence with withdrawal Current Visit: No Status: Acute (8) Substance induced mood disorder Current Visit: No Status: Acute (9) Cocaine dependence, uncomplicated Current Visit: No Status: Chronic (10) Major depressive disorder, recurrent, moderate Current Visit: No Status: Suspected (11) Nicotine dependence Current Visit: No Status: Chronic Qualifiers: Nicotine product type: cigarettes Substance use status: uncomplicated Qualified Code(s): F17.210 - Nicotine dependence, cigarettes, uncomplicated - Initial Treatment Plan Initial Treatment Plan: Obsercvation. Detox Unit Carte Protocol
[2016-10-26 17:11] LABS: URINE APPEARANCE CLEAR; URINE BILIRUBIN NEGATIVE (NEGATIVE); URINE BLOOD NEGATIVE (NEGATIVE); URINE COLOR YELLOW; URINE GLUCOSE (UA) NEGATIVE (NEGATIVE); URINE KETONE TRACE (NEGATIVE); URINE LEUK ESTERASE NEGATIVE (NEGATIVE); URINE NITRITE NEGATIVE (NEGATIVE); URINE PROTEIN NEGATIVE (NEGATIVE); URINE UROBILINOGEN NEGATIVE E.U./dl (0.2-1.0)
[2016-10-26] MEDS: chlordiazePOXIDE HCL 25 MG CAPSULE PO SCH ×2 (17:34→22:35)
[2016-10-26] MEDS: diphenhydrAMINE HCL 50 MG CAPSULE PO PRN (22:35)
[2016-10-26] MEDS: THIAMINE HCL 100 MG TABLET (FP) PO SCH (22:36)
[2016-10-26] MEDS: cloNIDine HCL 0.1 MG TABLET PO SCH (22:36)
[2016-10-27] MEDS: P-EPHED 60MG/TRIPROLIDI 2.5MG TABLET PO PRN ×2 (05:41→19:01)
[2016-10-27] MEDS: chlordiazePOXIDE HCL 25 MG CAPSULE PO SCH ×4 (05:41→22:50)
--- NOTE | 2016-10-27 09:54 | PN ---
S CIWA - CIWA Score Nausea/Vomitin Muscle Tremors: 3 Anxiety: 3 Agitation: 3 Paroxysmal Sweats: 1-Minimal Palms Moist Orientation: 0-Oriented Tacttile Disturbances: 1-Very Mild Itch/Numbness Auditory Disturbances: 1-Very Mild Visual Disturbances: 1-Very Mild Sensitivity Headache: 2-Mild CIWA-Ar Total Score: 18 BHS COWS - Scale Resting Pulse: 0= [place] 80 or Below Sweatin=Flushed/Facial Moisture Restless Observation: 3= Extraneous Movement Pupil Size: 1= Pupils >than Normal Bone or Joint Aches: 2= Severe Diffuse Aches Runny Nose/ Eye Tearin= Nasal Congestion GI Upset > 30mins: 3= Vomiting/Diarrhea Tremor Observation of Outstretched Hands: 2= Slight Tremor Visible Yawning Observation: 1= 1-2x During Session Anxiety or Irritability: 2=Irritable/Anxious Goose Flesh Skin: 0=Smooth Skin COWS Score: 17 BHS Progress Note (SOAP) Subjective: ALERT,IRRITABLE,ANXIOUS,INTERRUPTED SLEEP,TREMOR,PAIN IN THE BODY AND BACK Objective: 10/27/16 09:52 Vital Signs Temperature 98.6 F 10/27/16 09:44 Pulse Rate 79 10/27/16 09:44 Respiratory Rate 16 10/27/16 09:44 Blood Pressure 99/65 10/27/16 09:44 O2 Sat by Pulse Oximetry (%) EKG SINUS BRADYCARDIA 58/MIN NO CHEST PAIN,NO SOB,NO DIZZINESS Laboratory Last Values Urine Color Yellow 10/26/16 15:00 Urine Appearance Clear 10/26/16 15:00 Urine pH 5.0 (5.0-8.0) D 10/26/16 15:00 Ur Specific [place] 1.020 (1.001-1.035) 10/26/16 15:00 Urine Protein Negative (NEGATIVE) 10/26/16 15:00 Urine Glucose (UA) Negative (NEGATIVE) 10/26/16 15:00 Urine Ketones Trace (NEGATIVE) H 10/26/16 15:00 Urine Blood Negative (NEGATIVE) 10/26/16 15:00 Urine Nitrite Negative (NEGATIVE) 10/26/16 15:00 Urine Bilirubin Negative (NEGATIVE) 10/26/16 15:00 Urine Urobilinogen Negative E.U./dl (0.2-1.0) 10/26/16 15:00 Ur Leukocyte Esterase Negative (NEGATIVE) 10/26/16 15:00 LABS PENDING Assessment: 10/27/16 09:53 WITHDRAWAL SYMPTOM Plan: CONTINUE DETOX
[2016-10-27] MEDS ORDERED: METHADONE HCL 10 MG TABLET (FOR DETOX USE ONLY) PO SCH (10:00)
[2016-10-27] MEDS: PRENATAL VITAMINS W/ FOLIC ACID TABLET (FP) PO SCH (10:43)
[2016-10-27] MEDS: cloNIDine HCL 0.1 MG TABLET PO SCH ×2 (10:46→22:50)
[2016-10-27] MEDS: NICOTINE 21 MG/24 HOURS TOPICAL PATCH TD SCH (10:46)
[2016-10-27 11:38] LABS: ALBUMIN 3.8 g/dl (3.4-5.0); ALK PHOS 87 U/L (45-117); ANION GAP 8 (8-16); BILIRUBIN,TOTAL 0.5 mg/dL (0.2-1.0); CALCIUM 8.9 mg/dL (8.5-10.1); CO2 31 mmol/L (21-32); COCKROFT - GAULT 133.49; CREATININE 0.8 mg/dL (0.7-1.3); GLUCOSE,RANDOM 86 mg/dL (74-106); SGOT/AST 27 U/L (15-37); SGPT/ALT 32 U/L (12-78); TOT PROT 7.4 g/dl (6.4-8.2)
[2016-10-27 11:42] LABS: MCH 27.9 pg (25.7-33.7); MCHC 32.7 g/dl (32.0-35.9); MEAN CELL VOLUME 85.3 fl (80-96); MEAN PLT VOLUME 8.4 fl (7.5-11.1); PLATELET COUNT 250 K/MM3 (134-434); RDW 14.8 % (11.9-15.9); WHITE BLOOD COUNT 5.1 K/mm3 (4.0-10.0)
[2016-10-27] MEDS: IBUPROFEN 400 MG TABLET (FP) PO PRN (13:07)
[2016-10-27] MEDS: chlordiazePOXIDE HCL 25 MG CAPSULE PO PRN ×2 (13:10→19:00)
--- NOTE | 2016-10-27 14:10 | EKG ---
Test Reason : Blood Pressure : / mmHG Vent. Rate : 058 BPM Atrial Rate : 058 BPM P-R Int : 176 ms QRS Dur : 096 ms QT Int : 408 ms P-R-T Axes : 038 074 052 degrees QTc Int : 400 ms SINUS BRADYCARDIA OTHERWISE NORMAL ECG WHEN COMPARED WITH ECG OF 15-SEP-2016 13:49, T WAVE INVERSION NO LONGER EVIDENT IN ANTERIOR LEADS CLINICAL CORRELATION IS RECOMMENDED Confirmed by KINA WHITMORE, ISMAEL ([id number]) on 10/27/2016 2:10:33 PM Referred By: Confirmed By:ISMAEL CASTANON MD
[2016-10-27] MEDS: THIAMINE HCL 100 MG TABLET (FP) PO SCH (22:50)
[2016-10-27] MEDS: diphenhydrAMINE HCL 50 MG CAPSULE PO PRN (22:50)
[2016-10-28] MEDS: chlordiazePOXIDE HCL 25 MG CAPSULE PO SCH ×2 (05:38→10:44)
[2016-10-28] MEDS: chlordiazePOXIDE HCL 25 MG CAPSULE PO PRN ×3 (07:13→19:31)
[2016-10-28] MEDS: P-EPHED 60MG/TRIPROLIDI 2.5MG TABLET PO PRN ×2 (07:14→19:32)
[2016-10-28] MEDS: hydrOXYzine PAMOATE 50 MG CAPSULE (FP) PO PRN ×2 (08:42→17:10)
--- NOTE | 2016-10-28 10:29 | PN ---
S CIWA - CIWA Score Nausea/Vomitin Muscle Tremors: 3 Anxiety: 3 Agitation: 3 Paroxysmal Sweats: 1-Minimal Palms Moist Orientation: 0-Oriented Tacttile Disturbances: 1-Very Mild Itch/Numbness Auditory Disturbances: 1-Very Mild Visual Disturbances: 1-Very Mild Sensitivity Headache: 2-Mild CIWA-Ar Total Score: 18 BHS COWS - Scale Resting Pulse: 0= [place] 80 or Below Sweatin= Chills/Flushing Restless Observation: 3= Extraneous Movement Pupil Size: 1= Pupils >than Normal Bone or Joint Aches: 2= Severe Diffuse Aches Runny Nose/ Eye Tearin= Nasal Congestion GI Upset > 30mins: 3= Vomiting/Diarrhea Tremor Observation of Outstretched Hands: 2= Slight Tremor Visible Yawning Observation: 1= 1-2x During Session Anxiety or Irritability: 2=Irritable/Anxious Goose Flesh Skin: 0=Smooth Skin COWS Score: 16 BHS Progress Note (SOAP) Subjective: ALERT,IRRITABLE,ANXIOUS,INTERRUPTED SLEEP,TREMOR,POOR APPETITE,PAIN IN THE BODY AND BACK Objective: 10/28/16 10:27 Vital Signs Temperature 98.4 F 10/28/16 09:54 Pulse Rate 77 10/28/16 09:54 Respiratory Rate 18 10/28/16 09:54 Blood Pressure 115/49 10/28/16 09:54 O2 Sat by Pulse Oximetry (%) Laboratory Last Values WBC 5.1 K/mm3 (4.0-10.0) 10/27/16 06:40 RBC 5.25 M/mm3 (4.00-5.60) 10/27/16 06:40 Hgb 14.7 GM/dL (11.7-16.9) 10/27/16 06:40 Hct 44.8 % (35.4-49) 10/27/16 06:40 MCV 85.3 fl (80-96) 10/27/16 06:40 MCHC 32.7 g/dl (32.0-35.9) 10/27/16 06:40 RDW 14.8 % (11.9-15.9) 10/27/16 06:40 Plt Count 250 K/MM3 (134-434) 10/27/16 06:40 MPV 8.4 fl (7.5-11.1) 10/27/16 06:40 Sodium 139 mmol/L (136-145) 10/27/16 06:40 Potassium 4.6 mmol/L (3.5-5.1) 10/27/16 06:40 Chloride 100 mmol/L (98-107) 10/27/16 06:40 Carbon Dioxide 31 mmol/L (21-32) 10/27/16 06:40 Anion Gap 8 (8-16) 10/27/16 06:40 BUN 11 mg/dL (7-18) D 10/27/16 06:40 Creatinine 0.8 mg/dL (0.7-1.3) 10/27/16 06:40 Creat Clearance w eGFR > 60 (>60) 10/27/16 06:40 Random Glucose 86 mg/dL (74-106) 10/27/16 06:40 Calcium 8.9 mg/dL (8.5-10.1) 10/27/16 06:40 Total Bilirubin 0.5 mg/dL (0.2-1.0) D 10/27/16 06:40 AST 27 U/L (15-37) D 10/27/16 06:40 ALT 32 U/L (12-78) D 10/27/16 06:40 Alkaline Phosphatase 87 U/L (45-117) 10/27/16 06:40 Total Protein 7.4 g/dl (6.4-8.2) 10/27/16 06:40 Albumin 3.8 g/dl (3.4-5.0) 10/27/16 06:40 Urine Color Yellow 10/26/16 15:00 Urine Appearance Clear 10/26/16 15:00 Urine pH 5.0 (5.0-8.0) D 10/26/16 15:00 Ur Specific [place] 1.020 (1.001-1.035) 10/26/16 15:00 Urine Protein Negative (NEGATIVE) 10/26/16 15:00 Urine Glucose (UA) Negative (NEGATIVE) 10/26/16 15:00 Urine Ketones Trace (NEGATIVE) H 10/26/16 15:00 Urine Blood Negative (NEGATIVE) 10/26/16 15:00 Urine Nitrite Negative (NEGATIVE) 10/26/16 15:00 Urine Bilirubin Negative (NEGATIVE) 10/26/16 15:00 Urine Urobilinogen Negative E.U./dl (0.2-1.0) 10/26/16 15:00 Ur Leukocyte Esterase Negative (NEGATIVE) 10/26/16 15:00 RPR Titer Nonreactive (NONREACTIVE) 10/27/16 06:40 Assessment: 10/28/16 10:28 WITHDRAWAL SYMPTOM Plan: CONTINUE DETOX,ENSURE PLUS 120 MLS PO BID
[2016-10-28] MEDS: CYCLOBENZAPRINE HCL 10 MG TABLET (FP) PO PRN (10:42)
[2016-10-28] MEDS: PRENATAL VITAMINS W/ FOLIC ACID TABLET (FP) PO SCH (10:42)
[2016-10-28] MEDS: cloNIDine HCL 0.1 MG TABLET PO SCH ×2 (10:42→22:56)
[2016-10-28] MEDS: METHADONE HCL 5 MG TABLET (FOR DETOX USE ONLY) PO SCH (10:43)
[2016-10-28] MEDS: NICOTINE 21 MG/24 HOURS TOPICAL PATCH TD SCH (10:44)
[2016-10-28] MEDS: IBUPROFEN 400 MG TABLET (FP) PO PRN (13:00)
[2016-10-28] MEDS: chlordiazePOXIDE 5 MG CAPSULE PO SCH ×2 (17:10→22:55)
[2016-10-28] MEDS: THIAMINE HCL 100 MG TABLET (FP) PO SCH (22:56)
[2016-10-28] MEDS: diphenhydrAMINE HCL 50 MG CAPSULE PO PRN (22:57)
[2016-10-29] MEDS: chlordiazePOXIDE 5 MG CAPSULE PO SCH ×2 (05:42→10:31)
[2016-10-29] MEDS: CYCLOBENZAPRINE HCL 10 MG TABLET (FP) PO PRN ×3 (05:44→22:26)
[2016-10-29] MEDS: hydrOXYzine PAMOATE 50 MG CAPSULE (FP) PO PRN ×2 (07:38→12:51)
[2016-10-29] MEDS: chlordiazePOXIDE HCL 25 MG CAPSULE PO PRN (08:32)
--- NOTE | 2016-10-29 09:38 | PN ---
BHS Progress Note (SOAP) Subjective: alert,irritable,anxious,interrupted sleep,pain in the body and back Objective: 10/29/16 09:37 Vital Signs Temperature 98.1 F 10/29/16 06:39 Pulse Rate 70 10/29/16 06:39 Respiratory Rate 18 10/29/16 06:39 Blood Pressure 98/62 10/29/16 06:39 O2 Sat by Pulse Oximetry (%) Assessment: 10/29/16 09:37 withdrawal symptom Plan: continue detox
[2016-10-29] MEDS: PRENATAL VITAMINS W/ FOLIC ACID TABLET (FP) PO SCH (10:31)
[2016-10-29] MEDS: METHADONE HCL 5 MG TABLET (FOR DETOX USE ONLY) PO SCH (10:31)
[2016-10-29] MEDS: cloNIDine HCL 0.1 MG TABLET PO SCH ×2 (10:31→22:26)
[2016-10-29] MEDS: NICOTINE 21 MG/24 HOURS TOPICAL PATCH TD SCH (10:31)
[2016-10-29] MEDS: IBUPROFEN 400 MG TABLET (FP) PO PRN (12:06)
[2016-10-29] MEDS: chlordiazePOXIDE HCL 10 MG CAPSULE PO SCH ×2 (17:11→22:26)
[2016-10-29] MEDS: THIAMINE HCL 100 MG TABLET (FP) PO SCH (22:26)
[2016-10-29] MEDS: diphenhydrAMINE HCL 50 MG CAPSULE PO PRN (22:27)
[2016-10-30] MEDS: chlordiazePOXIDE HCL 10 MG CAPSULE PO SCH ×2 (05:15→10:47)
[2016-10-30] MEDS: CYCLOBENZAPRINE HCL 10 MG TABLET (FP) PO PRN (05:16)
[2016-10-30] MEDS: hydrOXYzine PAMOATE 50 MG CAPSULE (FP) PO PRN ×2 (07:07→12:08)
[2016-10-30] MEDS: P-EPHED 60MG/TRIPROLIDI 2.5MG TABLET PO PRN (07:09)
--- NOTE | 2016-10-30 08:42 | PN ---
S Progress Note (SOAP) Subjective: ALERT,NO COMPLAINT Objective: 10/30/16 08:41 Vital Signs Temperature 97.7 F 10/30/16 06:00 Pulse Rate 66 10/30/16 06:00 Respiratory Rate 18 10/30/16 06:00 Blood Pressure 123/62 10/30/16 06:00 O2 Sat by Pulse Oximetry (%) Assessment: 10/30/16 08:41 PATIENT IS STABLE FOR DISCHARGE FOR REHAB Plan: DISCHARGE TODAY TO REHAB
--- NOTE | 2016-10-30 08:46 | DS ---
[facility] Detox Discharge Summary Admission Date: 10/26/16 Discharge Date: 10/30/16 - History Present History: Alcohol Dependence, Opioid Dependence Additional Comments: FOLLOW UP WITH [facility] Pertinent Past History: GERD NICOTINE DEPENDENCE ANXIETY AND DEPRESSION - Physical Exam Results Vital Signs: Vital Signs Temperature 97.7 F 10/30/16 06:00 Pulse Rate 66 10/30/16 06:00 Respiratory Rate 18 10/30/16 06:00 Blood Pressure 123/62 10/30/16 06:00 O2 Sat by Pulse Oximetry (%) Pertinent Admission Physical Exam Findings: WITHDRAWAL SYMPTOM - Treatment Hospital Course: Detox Protocol Followed, Detoxed Safely, Responded well, Discharged Condition Good, Rehab Referral Accepted Patient has Accepted a Rehab Referral to: [facility] - Medication Discharge Medications: Ambulatory Orders NK [No Known Home Medication] 10/26/16 - Diagnosis (1) Alcohol dependence with withdrawal, uncomplicated Current Visit: No Status: Acute (2) Opioid dependence with withdrawal Current Visit: No Status: Acute (3) GERD (gastroesophageal reflux disease) Current Visit: No Status: Chronic (4) Nicotine dependence Current Visit: No Status: Chronic Qualifiers: Nicotine product type: cigarettes Substance use status: uncomplicated Qualified Code(s): F17.210 - Nicotine dependence, cigarettes, uncomplicated (5) Anxiety and depression Current Visit: Yes Status: Acute - AMA Did Patient Leave Against Medical Advice: No
[2016-10-30] MEDS ORDERED: METHADONE HCL 10 MG TABLET (FOR DETOX USE ONLY) PO SCH (10:00)
[2016-10-30] MEDS: cloNIDine HCL 0.1 MG TABLET PO SCH (10:44)
[2016-10-30] MEDS: PRENATAL VITAMINS W/ FOLIC ACID TABLET (FP) PO SCH (10:44)
[2016-10-30] MEDS: NICOTINE 21 MG/24 HOURS TOPICAL PATCH TD SCH (10:45)
[2016-10-30 11:09] VITALS: BP 114/67; PULSE 71; TEMP 98.8
[2016-10-31] MEDS ORDERED: METHADONE HCL 5 MG TABLET (FOR DETOX USE ONLY) PO SCH (06:00)
== END 2016-10-30 12:25 | disposition other institution (70) | DRG 773 ==
LOC: YASAS 08:58 → Y6N 11:53
PROVIDERS: ADMIT Internal Medicine Addiction Medicine; ATTEND Internal Medicine Addiction Medicine
PROC: HZ2ZZZZ Detoxification Services for Substance Abuse Treatment (ICD-10-PCS; principal; 2016-10-30)
DX: F11.23 Opioid dependence with withdrawal (principal); F10.230 Alcohol dependence with withdrawal, uncomplicated; F12.20 Cannabis dependence, uncomplicated; F14.20 Cocaine dependence, uncomplicated; F17.210 Nicotine dependence, cigarettes, uncomplicated; F41.8 Other specified anxiety disorders; F19.24 Other psychoactive substance dependence with psychoactive substance-induced mood disorder; F33.1 Major depressive disorder, recurrent, moderate; K21.9 Gastro-esophageal reflux disease without esophagitis; L03.113 Cellulitis of right upper limb
CPT/HCPCS: 36415; 80053; 81003; 85027; 86593; 93005; 93010

== ENCOUNTER 2016-10-30 12:32 | Inpatient (IN) | payer OTHER ==
[2016-10-30] MEDS ORDERED: MAGNESIUM CITRATE 300 ML BOTTLE PO PRN (13:08)
[2016-10-30] MEDS ORDERED: LOPERAMIDE HCL 2 MG CAPSULE PO PRN (13:08)
[2016-10-30] MEDS ORDERED: MENTHOL/PHENOL 1 EACH UD MM PRN (13:08)
[2016-10-30] MEDS ORDERED: IBUPROFEN 400 MG TABLET (FP) PO PRN (13:08)
[2016-10-30] MEDS ORDERED: MAG HYDROX/AL HYDROX/SIMETH 30 ML UNIT-DOSE CUP PO PRN (13:08)
[2016-10-30] MEDS ORDERED: MAGNESIUM HYDROX 2400MG/30ML ORAL SUSPENSION 30 ML CUP PO PRN (13:08)
[2016-10-30] MEDS ORDERED: guaiFENesin/D-METHORPHAN HB 10 ML UNIT-DOSE CUPS PO PRN (13:08)
--- NOTE | 2016-10-30 13:16 | HP ---
EARNEST WHITMORE Rehab Assess/Revision - Admission History Admitted to Rehab from: [facility] Date of Admission to Rehab: 10/30/16 - Findings Detox History & Physical reviewed: Yes Concur with findings: Yes Comments/Additional Findings: for rehab as protocol
--- NOTE | 2016-10-30 15:03 | HP ---
Psychiatrist Admission - Data Date of interview: 10/30/16 Admission source: 6N Identifying data: This is the first 5N inpatient rehabilitation admission for this 36 year old sigle male who is domiciled and employed. Medical History: GERD, smokes 10 cigarettes a day. Psychiatric History: Patient reports first first contact with a psychiatristat age of 24 during while in inpatient rehabilitation center [facility] was diagnosed with MDD and treated over past 10 years with various medications, states was on Zoloft 100 mg and Remeron 15 mg po hs, due to the side-efefcts from Zoloft he stopped medications. Then the patient was seing a private psychiatrist Dr. Loomis from [place], was on bupropion and suboxone.then he was discharged from his service and got switched to venlafaxine at [facility] by the [facility] psychiatrist was on medication about 8 months and stooped states he signed out from the program. Patient denies history of suicide attempts and he requests to continue treatment with effexor 37.5 mg dailyand REmeron 15 mg po hs. Physical/Sexual Abuse/Trauma History: Denies history of sexual, physical and verbal abuse. Vital Signs: Vital Signs - 24 hr 10/30/16 13:28 Temperature 98.1 F Pulse Rate 79 Respiratory 18 Rate Blood Pressure 96/63 Allergies/Adverse Reactions: Allergies Allergy/AdvReac Type Severity Reaction Status Date / Time No Known Allergies Allergy Verified 10/30/16 12:50 Date of last physical exam: 10/26/16 Concur with the findings of this exam: Yes - Substance Abuse/Tx History Hx Alcohol Use: Yes (beer, wine, vodka adam use) Hx Substance Use: Yes Substance Use Type: Heroin (up to 10 bags a day IV use.) Hx Substance Use Treatment: Yes - Admission Criteria Previous failed treatment: Yes Poor recovery environment: Yes Comorbidities: Yes Lacks judgement: Yes Mental Status Exam - Mental Status Exam Alert and Oriented to: Time, Place, Person Cognitive Function: Good Patient Appearance: Well Groomed Mood: Depressed, Sad Affect: Appropriate, Mood Congruent Patient Behavior: Appropriate, Cooperative Speech Pattern: Clear, Appropriate Voice Loudness: Normal Thought Process: Intact, Goal Oriented Thought Disorder: Not Present Hallucinations: Denies Suicidal Ideation: Denies Homicidal Ideation: Denies Insight/Judgement: Fair Sleep: Difficulty falling asleep Appetite: Fair Muscle strength/Tone: Normal Gait/Station: Normal Psychiatric Findings - Problem List ([place] 1, 2,3) (1) Alcohol dependence Current Visit: No Status: Acute (2) GERD (gastroesophageal reflux disease) Current Visit: No Status: Chronic (3) Nicotine dependence Current Visit: No Status: Chronic Qualifiers: Nicotine product type: cigarettes Substance use status: uncomplicated Qualified Code(s): F17.210 - Nicotine dependence, cigarettes, uncomplicated (4) Major depressive disorder, recurrent, moderate Current Visit: No Status: Suspected - Initial Treatment Plan Initial Treatment Plan: will restart Remeron 15 mg po hs and Effexor 37.5 mg po daily, monitor progress as needed.
[2016-10-30] MEDS: hydrOXYzine PAMOATE 50 MG CAPSULE (FP) PO PRN ×2 (16:47→21:13)
[2016-10-30] MEDS: cloNIDine HCL 0.1 MG TABLET PO SCH (21:13)
[2016-10-30] MEDS: THIAMINE HCL 100 MG TABLET (FP) PO SCH (21:13)
[2016-10-30] MEDS: MIRTAZAPINE 15 MG TABLET (FP) PO SCH (21:13)
[2016-10-30] MEDS: CYCLOBENZAPRINE HCL 10 MG TABLET (FP) PO PRN (21:13)
[2016-10-31] MEDS: hydrOXYzine PAMOATE 50 MG CAPSULE (FP) PO PRN ×4 (06:33→21:16)
[2016-10-31] MEDS: CYCLOBENZAPRINE HCL 10 MG TABLET (FP) PO PRN ×2 (06:33→14:30)
[2016-10-31] MEDS: PRENATAL VITAMINS W/ FOLIC ACID TABLET (FP) PO SCH (10:17)
[2016-10-31] MEDS: VENLAFAXINE HCL 37.5 MG TABLET PO SCH (10:17)
[2016-10-31] MEDS: cloNIDine HCL 0.1 MG TABLET PO SCH ×2 (10:17→21:16)
[2016-10-31] MEDS: NICOTINE 21 MG/24 HOURS TOPICAL PATCH TD SCH (10:19)
[2016-10-31] MEDS: ACETAMINOPHEN 325 MG TABLET (FP) PO PRN (14:30)
[2016-10-31] MEDS: P-EPHED 60MG/TRIPROLIDI 2.5MG TABLET PO PRN (14:31)
[2016-10-31] MEDS: THIAMINE HCL 100 MG TABLET (FP) PO SCH (21:16)
[2016-10-31] MEDS: MIRTAZAPINE 15 MG TABLET (FP) PO SCH (21:16)
[2016-11-01] MEDS: hydrOXYzine PAMOATE 50 MG CAPSULE (FP) PO PRN ×4 (06:18→21:30)
[2016-11-01] MEDS: CYCLOBENZAPRINE HCL 10 MG TABLET (FP) PO PRN ×3 (06:18→21:29)
[2016-11-01] MEDS: ACETAMINOPHEN 325 MG TABLET (FP) PO PRN ×2 (06:18→10:23)
[2016-11-01] MEDS: NICOTINE 21 MG/24 HOURS TOPICAL PATCH TD SCH (10:22)
[2016-11-01] MEDS: PRENATAL VITAMINS W/ FOLIC ACID TABLET (FP) PO SCH (10:22)
[2016-11-01] MEDS: cloNIDine HCL 0.1 MG TABLET PO SCH ×2 (10:22→21:29)
[2016-11-01] MEDS: P-EPHED 60MG/TRIPROLIDI 2.5MG TABLET PO PRN (10:23)
[2016-11-01] MEDS: VENLAFAXINE HCL 37.5 MG TABLET PO SCH (10:25)
[2016-11-01] MEDS: THIAMINE HCL 100 MG TABLET (FP) PO SCH (21:29)
[2016-11-01] MEDS: MIRTAZAPINE 15 MG TABLET (FP) PO SCH (21:29)
[2016-11-02] MEDS: hydrOXYzine PAMOATE 50 MG CAPSULE (FP) PO PRN ×3 (06:12→14:44)
[2016-11-02] MEDS: ACETAMINOPHEN 325 MG TABLET (FP) PO PRN (06:12)
[2016-11-02] MEDS: P-EPHED 60MG/TRIPROLIDI 2.5MG TABLET PO PRN (06:12)
[2016-11-02] MEDS: CYCLOBENZAPRINE HCL 10 MG TABLET (FP) PO PRN ×2 (06:12→14:44)
[2016-11-02] MEDS: PRENATAL VITAMINS W/ FOLIC ACID TABLET (FP) PO SCH (10:43)
[2016-11-02] MEDS: NICOTINE 21 MG/24 HOURS TOPICAL PATCH TD SCH (10:43)
[2016-11-02] MEDS: VENLAFAXINE HCL 37.5 MG TABLET PO SCH (10:43)
[2016-11-02] MEDS: cloNIDine HCL 0.1 MG TABLET PO SCH ×2 (10:45→21:35)
[2016-11-02] MEDS: MIRTAZAPINE 15 MG TABLET (FP) PO SCH (21:35)
[2016-11-02] MEDS: THIAMINE HCL 100 MG TABLET (FP) PO SCH (21:35)
[2016-11-02] MEDS: diphenhydrAMINE HCL 50 MG CAPSULE PO PRN (21:36)
[2016-11-03] MEDS: hydrOXYzine PAMOATE 50 MG CAPSULE (FP) PO PRN ×2 (06:05→10:19)
[2016-11-03] MEDS: ACETAMINOPHEN 325 MG TABLET (FP) PO PRN ×2 (06:05→14:13)
[2016-11-03] MEDS: CYCLOBENZAPRINE HCL 10 MG TABLET (FP) PO PRN ×2 (06:05→21:55)
[2016-11-03] MEDS: P-EPHED 60MG/TRIPROLIDI 2.5MG TABLET PO PRN (06:07)
[2016-11-03] MEDS: NICOTINE 21 MG/24 HOURS TOPICAL PATCH TD SCH (10:17)
[2016-11-03] MEDS: PRENATAL VITAMINS W/ FOLIC ACID TABLET (FP) PO SCH (10:17)
[2016-11-03] MEDS: VENLAFAXINE HCL 37.5 MG TABLET PO SCH (10:19)
[2016-11-03] MEDS: THIAMINE HCL 100 MG TABLET (FP) PO SCH (21:55)
[2016-11-03] MEDS: MIRTAZAPINE 15 MG TABLET (FP) PO SCH (21:55)
[2016-11-03] MEDS: diphenhydrAMINE HCL 50 MG CAPSULE PO PRN (21:55)
[2016-11-04] MEDS: hydrOXYzine PAMOATE 50 MG CAPSULE (FP) PO PRN ×2 (06:16→10:22)
[2016-11-04] MEDS: CYCLOBENZAPRINE HCL 10 MG TABLET (FP) PO PRN ×2 (06:16→14:18)
[2016-11-04] MEDS: ACETAMINOPHEN 325 MG TABLET (FP) PO PRN ×2 (06:16→14:18)
[2016-11-04] MEDS: NICOTINE 21 MG/24 HOURS TOPICAL PATCH TD SCH (10:22)
[2016-11-04] MEDS: PRENATAL VITAMINS W/ FOLIC ACID TABLET (FP) PO SCH (10:22)
[2016-11-04] MEDS: VENLAFAXINE HCL 37.5 MG TABLET PO SCH (10:22)
[2016-11-04] MEDS: THIAMINE HCL 100 MG TABLET (FP) PO SCH (21:26)
[2016-11-04] MEDS: MIRTAZAPINE 15 MG TABLET (FP) PO SCH (21:26)
[2016-11-04] MEDS: diphenhydrAMINE HCL 50 MG CAPSULE PO PRN (21:26)
[2016-11-05] MEDS: hydrOXYzine PAMOATE 50 MG CAPSULE (FP) PO PRN ×3 (06:10→21:24)
[2016-11-05] MEDS: CYCLOBENZAPRINE HCL 10 MG TABLET (FP) PO PRN ×2 (06:10→21:24)
[2016-11-05] MEDS: ACETAMINOPHEN 325 MG TABLET (FP) PO PRN ×2 (06:10→10:21)
[2016-11-05] MEDS: VENLAFAXINE HCL 37.5 MG TABLET PO SCH (10:21)
[2016-11-05] MEDS: PRENATAL VITAMINS W/ FOLIC ACID TABLET (FP) PO SCH (10:22)
[2016-11-05] MEDS: NICOTINE 21 MG/24 HOURS TOPICAL PATCH TD SCH (10:23)
[2016-11-05] MEDS: MIRTAZAPINE 15 MG TABLET (FP) PO SCH (21:24)
[2016-11-05] MEDS: THIAMINE HCL 100 MG TABLET (FP) PO SCH (21:24)
[2016-11-06] MEDS: ACETAMINOPHEN 325 MG TABLET (FP) PO PRN ×2 (06:15→18:14)
[2016-11-06] MEDS: CYCLOBENZAPRINE HCL 10 MG TABLET (FP) PO PRN ×2 (06:15→18:14)
[2016-11-06] MEDS: PRENATAL VITAMINS W/ FOLIC ACID TABLET (FP) PO SCH (10:11)
[2016-11-06] MEDS: hydrOXYzine PAMOATE 50 MG CAPSULE (FP) PO PRN (10:11)
[2016-11-06] MEDS: NICOTINE 14 MG/24 HOURS TOPICAL PATCH TD SCH (10:11)
[2016-11-06] MEDS: VENLAFAXINE HCL 37.5 MG TABLET PO SCH (10:11)
[2016-11-06] MEDS: MIRTAZAPINE 15 MG TABLET (FP) PO SCH (21:27)
[2016-11-06] MEDS: THIAMINE HCL 100 MG TABLET (FP) PO SCH (21:27)
[2016-11-06] MEDS: diphenhydrAMINE HCL 50 MG CAPSULE PO PRN (21:28)
[2016-11-07] MEDS: CYCLOBENZAPRINE HCL 10 MG TABLET (FP) PO PRN ×2 (06:16→21:41)
[2016-11-07] MEDS: ACETAMINOPHEN 325 MG TABLET (FP) PO PRN (06:16)
[2016-11-07] MEDS: NICOTINE 14 MG/24 HOURS TOPICAL PATCH TD SCH (10:14)
[2016-11-07] MEDS: hydrOXYzine PAMOATE 50 MG CAPSULE (FP) PO PRN (10:14)
[2016-11-07] MEDS: VENLAFAXINE HCL 37.5 MG TABLET PO SCH (10:14)
[2016-11-07] MEDS: PRENATAL VITAMINS W/ FOLIC ACID TABLET (FP) PO SCH (10:14)
[2016-11-07] MEDS: THIAMINE HCL 100 MG TABLET (FP) PO SCH (21:40)
[2016-11-07] MEDS: MIRTAZAPINE 15 MG TABLET (FP) PO SCH (21:40)
[2016-11-07] MEDS: diphenhydrAMINE HCL 50 MG CAPSULE PO PRN (21:42)
[2016-11-08] MEDS: PRENATAL VITAMINS W/ FOLIC ACID TABLET (FP) PO SCH (10:16)
[2016-11-08] MEDS: VENLAFAXINE HCL 37.5 MG TABLET PO SCH (10:16)
[2016-11-08] MEDS: NICOTINE 14 MG/24 HOURS TOPICAL PATCH TD SCH (10:17)
[2016-11-08] MEDS: CYCLOBENZAPRINE HCL 10 MG TABLET (FP) PO PRN (21:37)
[2016-11-08] MEDS: THIAMINE HCL 100 MG TABLET (FP) PO SCH (21:37)
[2016-11-08] MEDS: MIRTAZAPINE 15 MG TABLET (FP) PO SCH (21:37)
[2016-11-08] MEDS: diphenhydrAMINE HCL 50 MG CAPSULE PO PRN (21:37)
[2016-11-09] MEDS: PRENATAL VITAMINS W/ FOLIC ACID TABLET (FP) PO SCH (09:39)
[2016-11-09] MEDS: VENLAFAXINE HCL 37.5 MG TABLET PO SCH (09:39)
[2016-11-09] MEDS: NICOTINE 14 MG/24 HOURS TOPICAL PATCH TD SCH (09:40)
[2016-11-09] MEDS: MIRTAZAPINE 15 MG TABLET (FP) PO SCH (21:41)
[2016-11-09] MEDS: CYCLOBENZAPRINE HCL 10 MG TABLET (FP) PO PRN (21:41)
[2016-11-09] MEDS: diphenhydrAMINE HCL 50 MG CAPSULE PO PRN (21:42)
[2016-11-09] MEDS: THIAMINE HCL 100 MG TABLET (FP) PO SCH (21:42)
[2016-11-10] MEDS: PRENATAL VITAMINS W/ FOLIC ACID TABLET (FP) PO SCH (10:35)
[2016-11-10] MEDS: VENLAFAXINE HCL 37.5 MG TABLET PO SCH (10:35)
[2016-11-10] MEDS: NICOTINE 14 MG/24 HOURS TOPICAL PATCH TD SCH (10:35)
[2016-11-10] MEDS: THIAMINE HCL 100 MG TABLET (FP) PO SCH (21:33)
[2016-11-10] MEDS: diphenhydrAMINE HCL 50 MG CAPSULE PO PRN (21:33)
[2016-11-10] MEDS: MIRTAZAPINE 15 MG TABLET (FP) PO SCH (21:34)
[2016-11-11] MEDS: PRENATAL VITAMINS W/ FOLIC ACID TABLET (FP) PO SCH (10:01)
[2016-11-11] MEDS: NICOTINE 14 MG/24 HOURS TOPICAL PATCH TD SCH (10:01)
[2016-11-11] MEDS: VENLAFAXINE HCL 37.5 MG TABLET PO SCH (10:01)
[2016-11-11] MEDS: THIAMINE HCL 100 MG TABLET (FP) PO SCH (21:34)
[2016-11-11] MEDS: diphenhydrAMINE HCL 50 MG CAPSULE PO PRN (21:34)
[2016-11-11] MEDS: MIRTAZAPINE 15 MG TABLET (FP) PO SCH (21:34)
[2016-11-12] MEDS: VENLAFAXINE HCL 37.5 MG TABLET PO SCH (10:26)
[2016-11-12] MEDS: PRENATAL VITAMINS W/ FOLIC ACID TABLET (FP) PO SCH (10:26)
[2016-11-12] MEDS: NICOTINE 14 MG/24 HOURS TOPICAL PATCH TD SCH (10:27)
[2016-11-12] MEDS: diphenhydrAMINE HCL 50 MG CAPSULE PO PRN (21:33)
[2016-11-12] MEDS: THIAMINE HCL 100 MG TABLET (FP) PO SCH (21:33)
[2016-11-12] MEDS: MIRTAZAPINE 15 MG TABLET (FP) PO SCH (21:33)
[2016-11-13] MEDS: VENLAFAXINE HCL 37.5 MG TABLET PO SCH (10:09)
[2016-11-13] MEDS: PRENATAL VITAMINS W/ FOLIC ACID TABLET (FP) PO SCH (10:09)
[2016-11-13] MEDS: hydrOXYzine PAMOATE 50 MG CAPSULE (FP) PO PRN (10:10)
[2016-11-13] MEDS: CYCLOBENZAPRINE HCL 10 MG TABLET (FP) PO PRN (10:10)
[2016-11-13] MEDS: NICOTINE 14 MG/24 HOURS TOPICAL PATCH TD SCH (10:10)
[2016-11-13] MEDS: diphenhydrAMINE HCL 50 MG CAPSULE PO PRN (21:31)
[2016-11-13] MEDS: MIRTAZAPINE 15 MG TABLET (FP) PO SCH (21:31)
[2016-11-13] MEDS: THIAMINE HCL 100 MG TABLET (FP) PO SCH (21:31)
[2016-11-14] MEDS: CYCLOBENZAPRINE HCL 10 MG TABLET (FP) PO PRN (10:22)
[2016-11-14] MEDS: PRENATAL VITAMINS W/ FOLIC ACID TABLET (FP) PO SCH (10:23)
[2016-11-14] MEDS: NICOTINE 14 MG/24 HOURS TOPICAL PATCH TD SCH (10:23)
[2016-11-14] MEDS: VENLAFAXINE HCL 37.5 MG TABLET PO SCH (10:23)
[2016-11-14] MEDS: hydrOXYzine PAMOATE 50 MG CAPSULE (FP) PO PRN (10:24)
[2016-11-14] MEDS: MIRTAZAPINE 15 MG TABLET (FP) PO SCH (21:26)
[2016-11-14] MEDS: THIAMINE HCL 100 MG TABLET (FP) PO SCH (21:26)
[2016-11-14] MEDS: diphenhydrAMINE HCL 50 MG CAPSULE PO PRN (21:26)
[2016-11-15] MEDS: hydrOXYzine PAMOATE 50 MG CAPSULE (FP) PO PRN (10:18)
[2016-11-15] MEDS: NICOTINE 14 MG/24 HOURS TOPICAL PATCH TD SCH (10:18)
[2016-11-15] MEDS: CYCLOBENZAPRINE HCL 10 MG TABLET (FP) PO PRN ×2 (10:18→21:28)
[2016-11-15] MEDS: PRENATAL VITAMINS W/ FOLIC ACID TABLET (FP) PO SCH (10:18)
[2016-11-15] MEDS: VENLAFAXINE HCL 37.5 MG TABLET PO SCH (10:19)
[2016-11-15] MEDS: diphenhydrAMINE HCL 50 MG CAPSULE PO PRN (21:26)
[2016-11-15] MEDS: THIAMINE HCL 100 MG TABLET (FP) PO SCH (21:26)
[2016-11-15] MEDS: MIRTAZAPINE 15 MG TABLET (FP) PO SCH (21:26)
[2016-11-16] MEDS: PRENATAL VITAMINS W/ FOLIC ACID TABLET (FP) PO SCH (10:34)
[2016-11-16] MEDS: VENLAFAXINE HCL 37.5 MG TABLET PO SCH (10:34)
[2016-11-16] MEDS: NICOTINE 14 MG/24 HOURS TOPICAL PATCH TD SCH (10:34)
[2016-11-16] MEDS: MIRTAZAPINE 15 MG TABLET (FP) PO SCH (21:35)
[2016-11-16] MEDS: diphenhydrAMINE HCL 50 MG CAPSULE PO PRN (21:35)
[2016-11-16] MEDS: THIAMINE HCL 100 MG TABLET (FP) PO SCH (21:35)
[2016-11-17] MEDS: PRENATAL VITAMINS W/ FOLIC ACID TABLET (FP) PO SCH (10:24)
[2016-11-17] MEDS: VENLAFAXINE HCL 37.5 MG TABLET PO SCH (10:24)
[2016-11-17] MEDS: NICOTINE 7 MG/24 HOURS TOPICAL PATCH TD SCH (10:24)
[2016-11-17] MEDS: MIRTAZAPINE 15 MG TABLET (FP) PO SCH (21:33)
[2016-11-17] MEDS: THIAMINE HCL 100 MG TABLET (FP) PO SCH (21:33)
[2016-11-17] MEDS: diphenhydrAMINE HCL 50 MG CAPSULE PO PRN (21:33)
[2016-11-18] MEDS: NICOTINE 7 MG/24 HOURS TOPICAL PATCH TD SCH (10:09)
[2016-11-18] MEDS: VENLAFAXINE HCL 37.5 MG TABLET PO SCH (10:09)
[2016-11-18] MEDS: PRENATAL VITAMINS W/ FOLIC ACID TABLET (FP) PO SCH (10:09)
[2016-11-18] MEDS: MIRTAZAPINE 15 MG TABLET (FP) PO SCH (21:26)
[2016-11-18] MEDS: diphenhydrAMINE HCL 50 MG CAPSULE PO PRN (21:26)
[2016-11-18] MEDS: THIAMINE HCL 100 MG TABLET (FP) PO SCH (21:26)
[2016-11-19] MEDS: NICOTINE 7 MG/24 HOURS TOPICAL PATCH TD SCH (10:22)
[2016-11-19] MEDS: PRENATAL VITAMINS W/ FOLIC ACID TABLET (FP) PO SCH (10:22)
[2016-11-19] MEDS: VENLAFAXINE HCL 37.5 MG TABLET PO SCH (10:22)
[2016-11-19] MEDS: THIAMINE HCL 100 MG TABLET (FP) PO SCH (21:35)
[2016-11-19] MEDS: MIRTAZAPINE 15 MG TABLET (FP) PO SCH (21:35)
[2016-11-19] MEDS: diphenhydrAMINE HCL 50 MG CAPSULE PO PRN (21:35)
[2016-11-20] MEDS: NICOTINE 7 MG/24 HOURS TOPICAL PATCH TD SCH (09:53)
[2016-11-20] MEDS: VENLAFAXINE HCL 37.5 MG TABLET PO SCH (09:53)
[2016-11-20] MEDS: PRENATAL VITAMINS W/ FOLIC ACID TABLET (FP) PO SCH (09:53)
[2016-11-20] MEDS: hydrOXYzine PAMOATE 50 MG CAPSULE (FP) PO PRN (09:55)
[2016-11-20] MEDS: CYCLOBENZAPRINE HCL 10 MG TABLET (FP) PO PRN (09:55)
[2016-11-20] MEDS: THIAMINE HCL 100 MG TABLET (FP) PO SCH (21:36)
[2016-11-20] MEDS: diphenhydrAMINE HCL 50 MG CAPSULE PO PRN (21:36)
[2016-11-20] MEDS: MIRTAZAPINE 15 MG TABLET (FP) PO SCH (21:36)
[2016-11-21] MEDS: hydrOXYzine PAMOATE 50 MG CAPSULE (FP) PO PRN (10:18)
[2016-11-21] MEDS: VENLAFAXINE HCL 37.5 MG TABLET PO SCH (10:18)
[2016-11-21] MEDS: PRENATAL VITAMINS W/ FOLIC ACID TABLET (FP) PO SCH (10:18)
[2016-11-21] MEDS: NICOTINE 7 MG/24 HOURS TOPICAL PATCH TD SCH (10:18)
[2016-11-21] MEDS: CYCLOBENZAPRINE HCL 10 MG TABLET (FP) PO PRN (10:18)
[2016-11-21] MEDS: MIRTAZAPINE 15 MG TABLET (FP) PO SCH (21:34)
[2016-11-21] MEDS: diphenhydrAMINE HCL 50 MG CAPSULE PO PRN (21:34)
[2016-11-21] MEDS: THIAMINE HCL 100 MG TABLET (FP) PO SCH (21:34)
[2016-11-22] MEDS: CYCLOBENZAPRINE HCL 10 MG TABLET (FP) PO PRN (10:16)
[2016-11-22] MEDS: hydrOXYzine PAMOATE 50 MG CAPSULE (FP) PO PRN (10:16)
[2016-11-22] MEDS: PRENATAL VITAMINS W/ FOLIC ACID TABLET (FP) PO SCH (10:16)
[2016-11-22] MEDS: NICOTINE 7 MG/24 HOURS TOPICAL PATCH TD SCH (10:17)
[2016-11-22] MEDS: VENLAFAXINE HCL 37.5 MG TABLET PO SCH (10:17)
[2016-11-22] MEDS: MIRTAZAPINE 15 MG TABLET (FP) PO SCH (21:30)
[2016-11-22] MEDS: diphenhydrAMINE HCL 50 MG CAPSULE PO PRN (21:30)
[2016-11-22] MEDS: THIAMINE HCL 100 MG TABLET (FP) PO SCH (21:30)
[2016-11-23] MEDS: PRENATAL VITAMINS W/ FOLIC ACID TABLET (FP) PO SCH (10:23)
[2016-11-23] MEDS: VENLAFAXINE HCL 37.5 MG TABLET PO SCH (10:24)
[2016-11-23] MEDS: NICOTINE 7 MG/24 HOURS TOPICAL PATCH TD SCH (10:24)
[2016-11-23] MEDS: diphenhydrAMINE HCL 50 MG CAPSULE PO PRN (21:38)
[2016-11-23] MEDS: THIAMINE HCL 100 MG TABLET (FP) PO SCH (21:38)
[2016-11-23] MEDS: MIRTAZAPINE 15 MG TABLET (FP) PO SCH (21:38)
[2016-11-24] MEDS: CYCLOBENZAPRINE HCL 10 MG TABLET (FP) PO PRN (10:14)
[2016-11-24] MEDS: PRENATAL VITAMINS W/ FOLIC ACID TABLET (FP) PO SCH (10:14)
[2016-11-24] MEDS: hydrOXYzine PAMOATE 50 MG CAPSULE (FP) PO PRN (10:14)
[2016-11-24] MEDS: VENLAFAXINE HCL 37.5 MG TABLET PO SCH (10:14)
[2016-11-24] MEDS: NICOTINE 7 MG/24 HOURS TOPICAL PATCH TD SCH (10:14)
[2016-11-24] MEDS: MIRTAZAPINE 15 MG TABLET (FP) PO SCH (21:27)
[2016-11-24] MEDS: diphenhydrAMINE HCL 50 MG CAPSULE PO PRN (21:27)
[2016-11-24] MEDS: THIAMINE HCL 100 MG TABLET (FP) PO SCH (21:27)
[2016-11-25 07:26] VITALS: BP 112/76; PULSE 81; TEMP 97.6
[2016-11-25] MEDS: NICOTINE 7 MG/24 HOURS TOPICAL PATCH TD SCH (10:10)
[2016-11-25] MEDS: VENLAFAXINE HCL 37.5 MG TABLET PO SCH (10:10)
[2016-11-25] MEDS: PRENATAL VITAMINS W/ FOLIC ACID TABLET (FP) PO SCH (10:10)
[2016-11-25] MEDS: MIRTAZAPINE 15 MG TABLET (FP) PO SCH (21:31)
[2016-11-25] MEDS: THIAMINE HCL 100 MG TABLET (FP) PO SCH (21:31)
[2016-11-25] MEDS: diphenhydrAMINE HCL 50 MG CAPSULE PO PRN (21:31)
[2016-11-26] MEDS: PRENATAL VITAMINS W/ FOLIC ACID TABLET (FP) PO SCH (09:54)
[2016-11-26] MEDS: VENLAFAXINE HCL 37.5 MG TABLET PO SCH (09:54)
[2016-11-26] MEDS: NICOTINE 7 MG/24 HOURS TOPICAL PATCH TD SCH (09:54)
--- NOTE | 2016-11-26 10:08 | PN ---
Psychiatric Progress Note Vital Signs: Vital Signs Period Temp Pulse Resp BP Sys/Terrell Pulse Ox Last 24 Hr 16-16 Date of Session: 11/26/16 Chief Complaint:: discharge visit HPI: Patient has addressed alcohol, nicotine dependence comorbid MDD ROS: GERD medically managed Current Medications: Active Medications Generic Name Dose Route Start Last Admin Trade Name Freq PRN Reason Stop Dose Admin Acetaminophen 650 mg 10/30/16 13:08 11/07/16 06:16 Tylenol - PO 650 mg Q4H PRN Administration FEVER OR PAIN Al Hydroxide/Mg Hydroxide 30 ml 10/30/16 13:08 11/01/16 19:39 Mylanta Oral Suspension - PO 30 ml Q6H PRN Administration DYSPEPSIA Cyclobenzaprine HCl 10 mg 10/30/16 13:10 11/24/16 10:14 Flexeril - PO 10 mg TID PRN Administration MUSCLE SPASMS Diphenhydramine HCl 50 mg 10/30/16 13:08 11/25/16 21:31 Benadryl - PO 50 mg HSMR1 PRN Administration FOR ITCHING Eucalyptus/Menthol/Phenol/Sorbitol 1 each 10/30/16 13:08 Cepastat Lozenge - MM Q4H PRN SORE THROAT Guaifenesin 10 ml 10/30/16 13:08 Robitussin Dm - PO Q6H PRN COUGH Hydroxyzine Pamoate 50 mg 10/30/16 13:08 11/24/16 10:14 Vistaril - PO 50 mg Q4H PRN Administration AGITATION Ibuprofen 400 mg 10/30/16 13:08 10/31/16 10:17 Motrin - PO 400 mg Q6H PRN Administration PAIN Loperamide HCl 4 mg 10/30/16 13:08 Imodium - PO Q6H PRN DIARRHEA Magnesium Hydroxide 30 ml 10/30/16 13:08 Milk Of Magnesia - PO DAILY PRN CONSTIPATION Mirtazapine 15 mg 10/30/16 22:00 11/25/16 21:31 Remeron - PO 15 mg HS RAKESH Administration Nicotine 7 mg 11/17/16 10:00 11/26/16 09:54 Nicoderm Patch - TD Not Given DAILY RAKESH Multivit/Folic Acid/Iron 1 tab 10/31/16 10:00 11/26/16 09:54 Vitamins (Sjr) - PO 1 tab DAILY RAKESH Administration Pseudoephedrine/Triprolidine 1 combo 10/30/16 13:08 11/03/16 06:07 Actifed - PO 1 combo TID PRN Administration NASAL CONGESTION Thiamine HCl 100 mg 10/30/16 22:00 11/25/16 21:31 Vitamin B1 - PO 100 mg HS RAKESH Administration Venlafaxine HCl 37.5 mg 10/31/16 10:00 11/26/16 09:54 Effexor - PO 37.5 mg DAILY RAKESH Administration Current Side Effect: No Lab tests ordered: No Lab tests reviewed: Yes Provider note:: Patient has completed today his treatment and met his goals, will continue to address his issues at [place] outpatient rehabilitation treatment. He gained insights into importance of changing attitude for the utilization of supports to prevent relapses. Medications Effexor and Remeron well tolerated, patient reports has been feeling much better in terms of anxiety reduction, sleep improvement scripts provided for 30 days. Patient is stable for discharg Total face to face time:: 30 Mental Status Exam - Mental Status Exam Alert and Oriented to: Time, Place, Person Cognitive Function: Good Patient Appearance: Well Groomed Mood: Hopeful Affect: Appropriate, Mood Congruent Patient Behavior: Cooperative Speech Pattern: Clear, Appropriate Voice Loudness: Normal Thought Process: Intact, Goal Oriented Thought Disorder: Not Present Hallucinations: Denies Suicidal Ideation: Denies Homicidal Ideation: Denies Insight/Judgement: Fair Sleep: Well Appetite: Good Muscle strength/Tone: Normal Gait/Station: Normal Psychiatric Treatment Plan - Problem List (1) Alcohol dependence Current Visit: No (2) GERD (gastroesophageal reflux disease) Current Visit: No (3) Nicotine dependence Current Visit: No Qualifiers: Nicotine product type: cigarettes Substance use status: uncomplicated Qualified Code(s): F17.210 - Nicotine dependence, cigarettes, uncomplicated (4) Major depressive disorder, recurrent, moderate Current Visit: No
== END 2016-11-26 10:40 | disposition home or self-care (01) | DRG 772 ==
LOC: YASAS 12:32 → Y5N 12:33
PROVIDERS: ADMIT Psychiatry & Neurology Psychiatry; ATTEND Psychiatry & Neurology Psychiatry
PROC: HZ42ZZZ Group Counseling for Substance Abuse Treatment, Cognitive-Behavioral (ICD-10-PCS; principal; 2016-10-30)
DX: F10.20 Alcohol dependence, uncomplicated (principal); F17.210 Nicotine dependence, cigarettes, uncomplicated; F33.1 Major depressive disorder, recurrent, moderate; K21.9 Gastro-esophageal reflux disease without esophagitis

== ENCOUNTER 2018-01-23 09:07 | Inpatient (IN) | payer OTHER ==
[2018-01-23 09:41] VITALS: BMI 19.9
--- NOTE | 2018-01-23 10:31 | HP ---
COWS - Scale Resting Pulse: 0= [place] 80 or Below Sweatin= Chills/Flushing Restless Observation: 3= Extraneous Movement Pupil Size: 2= Moderately Dilated Bone or Joint Aches: 2= Severe Diffuse Aches Runny Nose/ Eye Tearin= Runny Nose/Eyes GI Upset > 30mins: 3= Vomiting/Diarrhea Tremor Observation: 2= Slight Tremor Visible Yawning Observation: 2= >3x During Session Anxiety or Irritability: 2=Irritable/Anxious Goose Flesh Skin: 0=Smooth Skin COWS Score: 19 CIWA Score - CIWA Score Nausea/Vomitin Muscle Tremors: 3 Anxiety: 3 Agitation: 3 Paroxysmal Sweats: 1-Minimal Palms Moist Orientation: 0-Oriented Tacttile Disturbances: 1-Very Mild Itch/Numbness Auditory Disturbances: 1-Very Mild Visual Disturbances: 0-None Headache: 2-Mild CIWA-Ar Total Score: 17 Admission ROS BHS - HPI Chief Complaint: i need help to stop using heroin,alcohol,cocaine and street methadone Allergies/Adverse Reactions: Allergies Allergy/AdvReac Type Severity Reaction Status Date / Time No Known Allergies Allergy Verified 01/23/18 09:55 History of Present Illness: this 37 years old male with heroin,alcohol,cocaine and street methadone dependence,seeking detox,withdrawal symptom,last treatment [facility] 10/26/16 to detox and rehab 10/30/16 to 11/26/16 denied medical problem nicotine dependence weight loss depression longest period of sobriety 2 years - Ebola screening Have you traveled outside of the country in the last 21 days: No (N) Have you had contact with anyone from an Ebola affected area: No Have you been sick,other than usual withdrawal symptoms: No Do you have a fever: No - Review of Systems Constitutional: Chills, Malaise, Night Sweats, Changes in sleep, Weakness, Weight Stable, Unexplained wgt Loss EENT: reports: Nose Congestion Respiratory: reports: No Symptoms reported Cardiac: reports: No Symptoms Reported GI: reports: Diarrhea, Nausea, Vomiting, Abdominal cramping : reports: No Symptoms Reported Musculoskeletal: reports: Back Pain, Joint Pain, Muscle Pain, Joint Stiffness Integumentary: reports: Dryness Neuro: reports: Headache Endocrine: reports: No Symptoms Reported Hematology: reports: No Symptoms Reported Psychiatric: reports: No Sypmtoms Reported, Judgement Intact, Mood/Affect Appropiate, Orientated x3 Patient History - Patient Medical History Hx Anemia: No Hx Asthma: No Hx Chronic Obstructive Pulmonary Disease (COPD): No Hx Cancer: No Hx Cardiac Disorders: No Hx Congestive Heart Failure: No Hx Hypertension: No Hx Hypercholesterolemia: No Hx Pacemaker: No HX Cerebrovascular Accident: No Hx Seizures: Yes (2 MONTHS AGO) Hx Dementia: No Hx Diabetes: No Hx Gastrointestinal Disorders: Yes (acid reflux) Hx Liver Disease: No Hx Genitourinary Disorders: No Hx Sexually Transmitted Disorders: No Hx Renal Disease (ESRD): No Hx Thyroid Disease: No Hx Human Immunodeficiency Virus (HIV): No (last 09/04 negative) Hx Hepatitis C: No (negative) Hx Depression: Yes Hx Suicide Attempt: No Hx Bipolar Disorder: No Hx Schizophrenia: No Other Medical History: no suicidal,no homicidal - Patient Surgical History Past Surgical History: No Hx Neurologic Surgery: No Hx Cataract Extraction: No Hx Cardiac Surgery: No Hx Lung Surgery: No Hx Breast Surgery: No Hx Breast Biopsy: No Hx Abdominal Surgery: No Hx Appendectomy: No Hx Cholecystectomy: No Hx Genitourinary Surgery: No Hx Section: No Hx Orthopedic Surgery: No Anesthesia Reaction: No - PPD History Previous Implant?: Yes Documented Results: Negative w/proof Implanted On Prior R Admission?: Yes Date: 02/03/16 Results: 0 mm. PPD to be Administered?: Yes - Smoking Cessation Smoking history: Current every day smoker Have you smoked in the past 12 months: Yes Aproximately how many cigarettes per day: 5 Cigars Per Day: 0 Hx Chewing Tobacco Use: No Initiated information on smoking cessation: Yes 'Breaking Loose' booklet given: 01/23/18 - Substance & Tx. History Hx Alcohol Use: Yes Hx Substance Use: Yes Substance Use Type: Alcohol, Cocaine, Heroin - Substances Abused Alcohol Route: Oral Frequency: Daily Amount used: 4-5 NIPS OF GIN, 2 24 OUNCES BEER Age of first use: 16 Date of Last Use: 01/23/18 Heroin Route: Injection Frequency: Daily Amount used: 10 BAGS Age of first use: 24 Date of Last Use: 01/23/18 Cocaine Route: Smoking Frequency: Daily Amount used: $20-$40 Age of first use: 17 Date of Last Use: 01/22/18 street methadone Route: Oral Frequency: 1-2 times per week Amount used: 50 mgs Age of first use: 30 Date of Last Use: 01/20/18 Family Disease History - Family Disease History Family Disease History: CA: Grandparent (colon CA-), Father (??KIDNEY/ LUNG-) Admission Physical Exam [facility] - Vital Signs Vital Signs: Vital Signs - 24 hr 01/23/18 09:38 Temperature 98.7 F Pulse Rate 64 Respiratory 20 Rate Blood Pressure 128/77 - Physical General Appearance: Yes: Moderate Distress, Tremorous, Irritable, Sweating, Anxious HEENTM: Yes: SATHISH, Pharynx Normal, Nasal Congestion Respiratory: Yes: Within Normal Limits, Lungs Clear, No Respiratory Distress Neck: Yes: Within Normal Limits, Supple, Trachea in good position Breast: Yes: Within Normal Limits Cardiology: Yes: Regular Rhythm, Regular Rate, S1, S2 Abdominal: Yes: Within Normal Limits, Normal Bowel Sounds, Soft Genitourinary: Yes: Within Normal Limits Back: Yes: Within Normal Limits, Normal Inspection, Muscle Spasm Musculoskeletal: Yes: full range of Motion, Back pain, Joint Stiffness Extremities: Yes: Tremors Neurological: Yes: Within Normal Limits, senior maintenance technician II-XII NML intact, Fully Oriented, Alert, Motor Strength 5/5 Integumentary: Yes: Dry Lymphatic: Yes: Within Normal Limits - Diagnostic (1) Opioid dependence with withdrawal Current Visit: No Status: Acute (2) Alcohol dependence with withdrawal, uncomplicated Current Visit: No Status: Acute (3) Cocaine dependence, uncomplicated Current Visit: No Status: Chronic (4) Nicotine dependence Current Visit: No Status: Chronic Qualifiers: Nicotine product type: cigarettes Substance use status: uncomplicated Qualified Code(s): F17.210 - Nicotine dependence, cigarettes, uncomplicated (5) Weight loss Current Visit: Yes Status: Acute (6) Anxiety and depression Current Visit: No Status: Acute Cleared for Admission [facility] - Detox or Rehab [facility] Level of Care: Medically Managed Detox Regimen/Protocol: Methadone/Valium S Breath Alcohol Content Breath Alcohol Content: 0 Urine Drug Screen - Results Drug Screen Negative: No Urine Drug Screen Results: JOSSIE-Cocaine, OPI-Opiates, MTD-Methadone, OXY- Oxycodone
[2018-01-23] MEDS ORDERED: MAG HYDROX/AL HYDROX/SIMETH 30 ML UNIT-DOSE CUP PO PRN (10:43)
[2018-01-23] MEDS ORDERED: MAGNESIUM HYDROX 2400MG/30ML ORAL SUSPENSION 30 ML CUP PO PRN (10:43)
[2018-01-23] MEDS ORDERED: LOPERAMIDE HCL 2 MG CAPSULE PO PRN (10:43)
[2018-01-23] MEDS ORDERED: ACETAMINOPHEN 325 MG TABLET (FP) PO PRN (10:43)
[2018-01-23] MEDS ORDERED: P-EPHED 60MG/TRIPROLIDI 2.5MG TABLET PO PRN (10:43)
[2018-01-23] MEDS ORDERED: MAGNESIUM CITRATE 300 ML BOTTLE PO PRN (10:43)
[2018-01-23] MEDS ORDERED: MENTHOL/PHENOL 1 EACH UD MM PRN (10:43)
[2018-01-23] MEDS ORDERED: IBUPROFEN 400 MG TABLET (FP) PO PRN (10:43)
[2018-01-23] MEDS ORDERED: METHADONE HCL 10 MG TABLET (FOR DETOX USE ONLY) PO ONE ×2 (10:43→23:00)
[2018-01-23] MEDS ORDERED: guaiFENesin/D-METHORPHAN HB 10 ML UNIT-DOSE CUPS PO PRN (10:43)
[2018-01-23] MEDS ORDERED: diazePAM 5 MG TABLET PO ONE (10:43)
[2018-01-23] MEDS: NICOTINE 14 MG/24 HOURS TOPICAL PATCH TD SCH (12:23)
[2018-01-23] MEDS: diazePAM 5 MG TABLET PO SCH ×2 (14:49→22:26)
[2018-01-23] MEDS: CYCLOBENZAPRINE HCL 10 MG TABLET (FP) PO PRN (14:49)
[2018-01-23 19:27] LABS: URINE APPEARANCE CLEAR; URINE BILIRUBIN NEGATIVE (<2.0 mg/dL); URINE COLOR YELLOW; URINE GLUCOSE (UA) NEGATIVE (NEGATIVE); URINE KETONE NEGATIVE (NEGATIVE); URINE LEUK ESTERASE NEGATIVE (NEGATIVE); URINE NITRITE NEGATIVE (NEGATIVE); URINE PROTEIN NEGATIVE (NEGATIVE); URINE UROBILINOGEN NEGATIVE mg/dL (0.2-1.0)
[2018-01-23] MEDS: THIAMINE HCL 100 MG TABLET (FP) PO SCH (22:26)
[2018-01-23] MEDS: cloNIDine HCL 0.1 MG TABLET PO SCH (22:26)
[2018-01-23] MEDS: MELATONIN 5 MG TABLETS PO PRN (22:27)
[2018-01-24] MEDS: CYCLOBENZAPRINE HCL 10 MG TABLET (FP) PO PRN (05:55)
[2018-01-24] MEDS: diazePAM 5 MG TABLET PO SCH ×3 (05:56→22:10)
[2018-01-24 09:48] LABS: HEMATOCRIT 42.2 % (35.4-49); HEMOGLOBIN 14.1 GM/dL (11.7-16.9); MCH 28.1 pg (25.7-33.7); MCHC 33.5 g/dl (32.0-35.9); MEAN CELL VOLUME 83.8 fl (80-96); MEAN PLT VOLUME 8.3 fl (7.5-11.1); PLATELET COUNT 183 K/MM3 (134-434); RBC 5.03 M/mm3 (4.00-5.60); RDW 12.7 % (11.9-15.9); WHITE BLOOD COUNT 4.5 K/mm3 (4.0-10.0)
[2018-01-24] MEDS ORDERED: METHADONE HCL 10 MG TABLET (FOR DETOX USE ONLY) PO SCH (10:00)
[2018-01-24] MEDS: PRENATAL VITAMINS W/ FOLIC ACID TABLET (FP) PO SCH (10:29)
[2018-01-24] MEDS: NICOTINE 14 MG/24 HOURS TOPICAL PATCH TD SCH (10:29)
[2018-01-24] MEDS: cloNIDine HCL 0.1 MG TABLET PO SCH ×2 (10:32→22:10)
[2018-01-24 11:10] LABS: ALBUMIN 3.5 g/dl (3.4-5.0); CALCIUM 8.4 mg/dL (8.5-10.1); CHLORIDE 105 mmol/L (98-107); POTASSIUM 4.3 mmol/L (3.5-5.1); SODIUM 140 mmol/L (136-145)
[2018-01-24 11:16] LABS: ALK PHOS 55 U/L (45-117); ANION GAP 6 (8-16); BILIRUBIN,TOTAL 0.5 mg/dL (0.2-1.0); BLOOD UREA NITROGEN 13 mg/dL (7-18); CO2 29 mmol/L (21-32); CREATININE 0.9 mg/dL (0.7-1.3); GLUCOSE,RANDOM 88 mg/dL (74-106); SGOT/AST 17 U/L (15-37); SGPT/ALT 25 U/L (12-78); TOT PROT 6.9 g/dl (6.4-8.2)
--- NOTE | 2018-01-24 13:23 | PN ---
S CIWA - CIWA Score Nausea/Vomitin Muscle Tremors: 3 Anxiety: 3 Agitation: 3 Paroxysmal Sweats: 2 Orientation: 0-Oriented Tacttile Disturbances: 0-None Auditory Disturbances: 0-None Visual Disturbances: 0-None Headache: 1-Very Mild CIWA-Ar Total Score: 14 S COWS - Scale Resting Pulse: 0= [place] 80 or Below Sweatin=Flushed/Facial Moisture Restless Observation: 1= Difficult to Sit Still Pupil Size: 0= Normal to Room Light Bone or Joint Aches: 1= Mild Discomfort Runny Nose/ Eye Tearin= Nasal Congestion GI Upset > 30mins: 1= Stomach Cramp Tremor Observation of Outstretched Hands: 2= Slight Tremor Visible Yawning Observation: 1= 1-2x During Session Anxiety or Irritability: 2=Irritable/Anxious Goose Flesh Skin: 0=Smooth Skin COWS Score: 11 [facility] Progress Note (SOAP) Subjective: Sweats Shakes Sleep disturbance Objective: 01/24/18 14:00 A & O x 3 Anxious Laboratory Last Values WBC 4.5 K/mm3 (4.0-10.0) 01/24/18 06:30 RBC 5.03 M/mm3 (4.00-5.60) 01/24/18 06:30 Hgb 14.1 GM/dL (11.7-16.9) 01/24/18 06:30 Hct 42.2 % (35.4-49) 01/24/18 06:30 MCV 83.8 fl (80-96) 01/24/18 06:30 MCH 28.1 pg (25.7-33.7) 01/24/18 06:30 MCHC 33.5 g/dl (32.0-35.9) 01/24/18 06:30 RDW 12.7 % (11.9-15.9) D 01/24/18 06:30 Plt Count 183 K/MM3 (134-434) D 01/24/18 06:30 MPV 8.3 fl (7.5-11.1) 01/24/18 06:30 Sodium 140 mmol/L (136-145) 01/24/18 06:30 Potassium 4.3 mmol/L (3.5-5.1) 01/24/18 06:30 Chloride 105 mmol/L (98-107) 01/24/18 06:30 Carbon Dioxide 29 mmol/L (21-32) 01/24/18 06:30 Anion Gap 6 (8-16) L 01/24/18 06:30 BUN 13 mg/dL (7-18) 01/24/18 06:30 Creatinine 0.9 mg/dL (0.7-1.3) 01/24/18 06:30 Creat Clearance w eGFR > 60 (>60) 01/24/18 06:30 Random Glucose 88 mg/dL (74-106) 01/24/18 06:30 Calcium 8.4 mg/dL (8.5-10.1) L 01/24/18 06:30 Total Bilirubin 0.5 mg/dL (0.2-1.0) 01/24/18 06:30 AST 17 U/L (15-37) D 01/24/18 06:30 ALT 25 U/L (12-78) D 01/24/18 06:30 Alkaline Phosphatase 55 U/L (45-117) 01/24/18 06:30 Total Protein 6.9 g/dl (6.4-8.2) 01/24/18 06:30 Albumin 3.5 g/dl (3.4-5.0) 01/24/18 06:30 Urine Color Yellow 01/23/18 11:45 Urine Appearance Clear 01/23/18 11:45 Urine pH 6.0 (5.0-8.0) 01/23/18 11:45 Ur Specific [place] 1.017 (1.001-1.035) 01/23/18 11:45 Urine Protein Negative (NEGATIVE) 01/23/18 11:45 Urine Glucose (UA) Negative (NEGATIVE) 01/23/18 11:45 Urine Ketones Negative (NEGATIVE) 01/23/18 11:45 Urine Blood Negative (NEGATIVE) 01/23/18 11:45 Urine Nitrite Negative (NEGATIVE) 01/23/18 11:45 Urine Bilirubin Negative (<2.0 mg/dL) 01/23/18 11:45 Urine Urobilinogen Negative mg/dL (0.2-1.0) 01/23/18 11:45 Ur Leukocyte Esterase Negative (NEGATIVE) 01/23/18 11:45 Labs noted WNL Assessment: 01/24/18 14:00 withdrawal sx Plan: continue detox
--- NOTE | 2018-01-24 15:09 | EKG ---
Test Reason : Blood Pressure : / mmHG Vent. Rate : 059 BPM Atrial Rate : 059 BPM P-R Int : 168 ms QRS Dur : 100 ms QT Int : 426 ms P-R-T Axes : 054 072 046 degrees QTc Int : 421 ms SINUS BRADYCARDIA INCOMPLETE RIGHT BUNDLE BRANCH BLOCK BORDERLINE ECG WHEN COMPARED WITH ECG OF 26-OCT-2016 12:41, INCOMPLETE RIGHT BUNDLE BRANCH BLOCK IS NOW PRESENT Confirmed by DAY WHITMORE, MAURO ([id number]) on 01/24/2018 3:08:34 PM Referred By: Confirmed By:MAURO BERNSTEIN MD
--- NOTE | 2018-01-24 15:43 | CONSULT ---
[facility] Psychiatric Consult - Data Date of interview: 01/24/18 Admission source: [facility] Identifying data: Readmission to [facility] for this 37 y/o male seeking detox treatment on for alcohol,heroin and cocaine dependence.Patient is without children,domiciled and employed. Substance Abuse History: Confirmed by the patient.Smoking history: Current every day smoker. Have you smoked in the past 12 months: Yes. Aproximately how many cigarettes per day: 5. Cigars Per Day: 0. Hx Chewing Tobacco Use: No. Initiated information on smoking cessation: Yes. 'Breaking Loose' booklet given: 01/23/18. - Substance & Tx. History. Hx Alcohol Use: Yes. Hx Substance Use: Yes. Substance Use Type: Alcohol, Cocaine, Heroin. - Substances Abused. Alcohol. Route: Oral. Frequency: Daily. Amount used: 4 -5 NIPS OF GIN, 2 24 OUNCES BEER. Age of first use: 16. Date of Last Use: 03/05. Heroin. Route: Injection. Frequency: Daily. Amount used: 10 BAGS. Age of first use: 24. Date of Last Use: 01/23/18. Cocaine. Route: Smoking. Frequency: Daily. Amount used: $20-$40. Age of first use: 17. Date of Last Use: 01/22/18. street methadone. Route: Oral. Frequency: 1-2 times per week. Amount used: 50 mgs. Age of first use: 30. Date of Last Use: 01/20/18 Medical History: GERD and a history of withdrawal-related seizures. Psychiatric History: Patient denies history of psychiatric hospitalizations.Diagnosed in the past with MDD and Anxiety Disorder.Mr Badillo used to be on effexor + remeron.Stopped seeing a private psychiatrist months ago.Lost to follow up.Patient denies history of suicide attempts. Physical/Sexual Abuse/Trauma History: Patient denies. Additional Comment: Urine Drug Screen Results: JOSSIE-Cocaine, OPI-Opiates, MTD- Methadone, OXY-Oxycodone.Noted. Mental Status Exam - Mental Status Exam Alert and Oriented to: Time, Place, Person Cognitive Function: Good Patient Appearance: Well Groomed (tattoos on both forearms) Mood: Withdrawn, Anxious Affect: Mood Congruent Patient Behavior: Fatigued, Cooperative Speech Pattern: Clear, Appropriate Voice Loudness: Normal Thought Process: Intact, Goal Oriented Thought Disorder: Not Present Hallucinations: Denies Suicidal Ideation: Denies Homicidal Ideation: Denies Insight/Judgement: Poor Sleep: Poorly, Difficulty falling asleep Appetite: Good Muscle strength/Tone: Normal Gait/Station: Normal Psychiatric Findings - Problem List ([place] 1, 2,3) (1) Alcohol dependence with withdrawal, uncomplicated Current Visit: Yes Status: Acute (2) Opioid dependence with withdrawal Current Visit: Yes Status: Acute (3) Cocaine dependence, uncomplicated Current Visit: Yes Status: Acute (4) Nicotine dependence Current Visit: Yes Status: Acute Qualifiers: Nicotine product type: cigarettes Substance use status: uncomplicated Qualified Code(s): F17.210 - Nicotine dependence, cigarettes, uncomplicated (5) Substance induced mood disorder Current Visit: Yes Status: Acute (6) Insomnia Current Visit: Yes Status: Acute - Initial Treatment Plan Initial Treatment Plan: Psychoeducation.Sleep hygiene.Detoxification in progress.Remeron 15 mg po hs (ordered at patient's request).Side effects/ benefits discussed with patient.Agrees with careplan.Observation.
[2018-01-24] MEDS: diazePAM 5 MG TABLET PO PRN (18:58)
[2018-01-24] MEDS: MIRTAZAPINE 15 MG TABLET (FP) PO SCH (22:10)
[2018-01-24] MEDS: THIAMINE HCL 100 MG TABLET (FP) PO SCH (22:10)
[2018-01-25] MEDS: diazePAM 5 MG TABLET PO PRN ×3 (05:30→18:18)
[2018-01-25] MEDS: METHADONE HCL 5 MG TABLET (FOR DETOX USE ONLY) PO SCH (10:25)
[2018-01-25] MEDS: diazePAM 5 MG TABLET PO SCH ×2 (10:25→22:20)
[2018-01-25] MEDS: cloNIDine HCL 0.1 MG TABLET PO SCH ×2 (10:25→22:20)
[2018-01-25] MEDS: NICOTINE 14 MG/24 HOURS TOPICAL PATCH TD SCH (10:25)
[2018-01-25] MEDS: PRENATAL VITAMINS W/ FOLIC ACID TABLET (FP) PO SCH (10:25)
--- NOTE | 2018-01-25 12:42 | PN ---
[facility] CIWA - CIWA Score Nausea/Vomitin-No Nausea/No Vomiting Muscle Tremors: 3 Anxiety: 4-Mod. Anxious/Guarded Agitation: 0-Normal Activity Paroxysmal Sweats: 3 Orientation: 2-Disoriented Date<2 days Tacttile Disturbances: 3-Moderate Itch/Numb/Burn Auditory Disturbances: 0-None Visual Disturbances: 3-Moderate Sensitivity Headache: 0-None Present CIWA-Ar Total Score: 18 BHS COWS - Scale Resting Pulse: 1= [place] 81-100 Sweatin= Chills/Flushing Restless Observation: 0= Sits Still Pupil Size: 0= Normal to Room Light Bone or Joint Aches: 2= Severe Diffuse Aches Runny Nose/ Eye Tearin= Runny Nose/Eyes GI Upset > 30mins: 0= None Tremor Observation of Outstretched Hands: 2= Slight Tremor Visible Yawning Observation: 1= 1-2x During Session Anxiety or Irritability: 2=Irritable/Anxious Goose Flesh Skin: 3=Piloerection COWS Score: 14 S Progress Note (SOAP) Subjective: Body Aches, Tremors, Fatigue, Constipation, Sweating, Chills. Objective: PATIENT A & O X 3, OBSERVED AMBULATING ON UNIT. NO ACUTE DISTRESS. 01/25/18 12:39 Vital Signs Temperature 98.4 F 01/25/18 09:40 Pulse Rate 91 H 01/25/18 09:40 Respiratory Rate 18 01/25/18 09:40 Blood Pressure 105/69 01/25/18 09:40 O2 Sat by Pulse Oximetry (%) Laboratory Tests 01/23/18 01/24/18 01/24/18 11:45 06:30 06:30 WBC 4.5 RBC 5.03 Hgb 14.1 Hct 42.2 MCV 83.8 MCH 28.1 MCHC 33.5 RDW 12.7 D Plt Count 183 D MPV 8.3 Sodium 140 Potassium 4.3 Chloride 105 Carbon Dioxide 29 Anion Gap 6 L BUN 13 Creatinine 0.9 Creat Clearance w eGFR > 60 Random Glucose 88 Calcium 8.4 L Total Bilirubin 0.5 AST 17 D ALT 25 D Alkaline Phosphatase 55 Total Protein 6.9 Albumin 3.5 Urine Color Yellow Urine Appearance Clear Urine pH 6.0 Ur Specific [place] 1.017 Urine Protein Negative Urine Glucose (UA) Negative Urine Ketones Negative Urine Blood Negative Urine Nitrite Negative Urine Bilirubin Negative Urine Urobilinogen Negative Ur Leukocyte Esterase Negative LABS NOTED. RPR PENDING. 01/25/18 12:42 Assessment: 01/25/18 12:40 WITHDRAWAL SYMPTOMS. Plan: CONTINUE DETOX.
[2018-01-25] MEDS: MIRTAZAPINE 15 MG TABLET (FP) PO SCH (22:20)
[2018-01-25] MEDS: THIAMINE HCL 100 MG TABLET (FP) PO SCH (22:20)
[2018-01-25] MEDS: MELATONIN 5 MG TABLETS PO PRN (22:21)
[2018-01-26] MEDS: diazePAM 5 MG TABLET PO PRN (05:53)
[2018-01-26] MEDS: CYCLOBENZAPRINE HCL 10 MG TABLET (FP) PO PRN (05:53)
[2018-01-26] MEDS: cloNIDine HCL 0.1 MG TABLET PO SCH ×2 (10:27→22:10)
[2018-01-26] MEDS: METHADONE HCL 5 MG TABLET (FOR DETOX USE ONLY) PO SCH (10:27)
[2018-01-26] MEDS: diazePAM 5 MG TABLET PO SCH ×2 (10:27→22:10)
[2018-01-26] MEDS: NICOTINE 14 MG/24 HOURS TOPICAL PATCH TD SCH (10:27)
[2018-01-26] MEDS: PRENATAL VITAMINS W/ FOLIC ACID TABLET (FP) PO SCH (10:27)
--- NOTE | 2018-01-26 12:11 | PN ---
BHS Progress Note (SOAP) Subjective: Anxious, Tremors, Constipation, Fatigue. Objective: PATIENT A & O X 3. NO ACUTE DISTRESS. 01/26/18 12:08 Vital Signs Temperature 98.2 F 01/26/18 09:05 Pulse Rate 86 01/26/18 09:05 Respiratory Rate 18 01/26/18 09:05 Blood Pressure 101/65 01/26/18 09:05 O2 Sat by Pulse Oximetry (%) Laboratory Tests 01/23/18 01/24/18 01/24/18 11:45 06:30 06:30 WBC 4.5 RBC 5.03 Hgb 14.1 Hct 42.2 MCV 83.8 MCH 28.1 MCHC 33.5 RDW 12.7 D Plt Count 183 D MPV 8.3 Sodium 140 Potassium 4.3 Chloride 105 Carbon Dioxide 29 Anion Gap 6 L BUN 13 Creatinine 0.9 Creat Clearance w eGFR > 60 Random Glucose 88 Calcium 8.4 L Total Bilirubin 0.5 AST 17 D ALT 25 D Alkaline Phosphatase 55 Total Protein 6.9 Albumin 3.5 Urine Color Yellow Urine Appearance Clear Urine pH 6.[address] [place] 1.017 Urine Protein Negative Urine Glucose (UA) Negative Urine Ketones Negative Urine Blood Negative Urine Nitrite Negative Urine Bilirubin Negative Urine Urobilinogen Negative Ur Leukocyte Esterase Negative LABS NOTED. RPR RESULT PENDING. 01/26/18 12:09 Assessment: 01/26/18 12:09 WITHDRAWAL SYMPTOMS. Plan: CONTINUE DETOX. INCREASE DAILY PO FLUID INTAKE. PRN MOM FOR CONSTIPATION. ENCOURAGE AMBULATION.
[2018-01-26] MEDS: hydrOXYzine PAMOATE 25 MG CAPSULE (FP) PO PRN (18:52)
[2018-01-26] MEDS: MIRTAZAPINE 15 MG TABLET (FP) PO SCH (22:10)
[2018-01-26] MEDS: THIAMINE HCL 100 MG TABLET (FP) PO SCH (22:10)
[2018-01-26] MEDS: MELATONIN 5 MG TABLETS PO PRN (22:12)
[2018-01-27] MEDS ORDERED: diazePAM 5 MG TABLET PO SCH (10:00)
[2018-01-27] MEDS ORDERED: METHADONE HCL 10 MG TABLET (FOR DETOX USE ONLY) PO SCH (10:00)
[2018-01-27] MEDS: cloNIDine HCL 0.1 MG TABLET PO SCH ×2 (10:50→22:07)
[2018-01-27] MEDS: NICOTINE 14 MG/24 HOURS TOPICAL PATCH TD SCH (10:51)
[2018-01-27] MEDS: PRENATAL VITAMINS W/ FOLIC ACID TABLET (FP) PO SCH (10:51)
[2018-01-27] MEDS: hydrOXYzine PAMOATE 25 MG CAPSULE (FP) PO PRN ×2 (14:02→17:53)
--- NOTE | 2018-01-27 14:17 | PN ---
BHS Progress Note (SOAP) Subjective: Fatigue, Hot / Cold Sensations, Sweating. Objective: PATIENT A & O X 3, OBSERVED AMBULATING ON UNIT. NO ACUTE DISTRESS. 01/27/18 14:15 Vital Signs Temperature 98.2 F 01/27/18 13:28 Pulse Rate 89 01/27/18 13:28 Respiratory Rate 18 01/27/18 13:28 Blood Pressure 93/58 01/27/18 13:28 O2 Sat by Pulse Oximetry (%) Laboratory Tests 01/23/18 01/24/18 01/24/18 11:45 06:30 06:30 WBC 4.5 RBC 5.03 Hgb 14.1 Hct 42.2 MCV 83.8 MCH 28.1 MCHC 33.5 RDW 12.7 D Plt Count 183 D MPV 8.3 Sodium 140 Potassium 4.3 Chloride 105 Carbon Dioxide 29 Anion Gap 6 L BUN 13 Creatinine 0.9 Creat Clearance w eGFR > 60 Random Glucose 88 Calcium 8.4 L Total Bilirubin 0.5 AST 17 D ALT 25 D Alkaline Phosphatase 55 Total Protein 6.9 Albumin 3.5 Urine Color Yellow Urine Appearance Clear Urine pH 6.0 Ur Specific [place] 1.017 Urine Protein Negative Urine Glucose (UA) Negative Urine Ketones Negative Urine Blood Negative Urine Nitrite Negative Urine Bilirubin Negative Urine Urobilinogen Negative Ur Leukocyte Esterase Negative RPR Titer 01/24/18 06:30 WBC RBC Hgb Hct MCV MCH MCHC RDW Plt Count MPV Sodium Potassium Chloride Carbon Dioxide Anion Gap BUN Creatinine Creat Clearance w eGFR Random Glucose Calcium Total Bilirubin AST ALT Alkaline Phosphatase Total Protein Albumin Urine Color Urine Appearance Urine pH Ur Specific [place] Urine Protein Urine Glucose (UA) Urine Ketones Urine Blood Urine Nitrite Urine Bilirubin Urine Urobilinogen Ur Leukocyte Esterase RPR Titer Nonreactive LABS NOTED. Assessment: 01/27/18 14:16 WITHDRAWAL SYMPTOMS. Plan: CONTINUE DETOX. INCREASE DAILY PO FLUID INTAKE. ENCOURAGE AMBULATION.
[2018-01-27] MEDS: THIAMINE HCL 100 MG TABLET (FP) PO SCH (22:07)
[2018-01-27] MEDS: MIRTAZAPINE 15 MG TABLET (FP) PO SCH (22:07)
[2018-01-27] MEDS: MELATONIN 5 MG TABLETS PO PRN (22:07)
[2018-01-28] MEDS: CYCLOBENZAPRINE HCL 10 MG TABLET (FP) PO PRN (05:28)
[2018-01-28] MEDS ORDERED: METHADONE HCL 5 MG TABLET (FOR DETOX USE ONLY) PO SCH (06:00)
[2018-01-28 06:42] VITALS: BP 100/61; PULSE 72; TEMP 97.4
--- NOTE | 2018-01-28 17:09 | PN ---
BHS Progress Note (SOAP) Subjective: Patient denies current Detox symptoms and reports that he feels well overall. Objective: PATIENT A & O X 3, OBSERVED AMBULATING ON UNIT. NO ACUTE DISTRESS. 01/28/18 17:05 Vital Signs Temperature 97.4 F L 01/28/18 06:41 Pulse Rate 72 01/28/18 06:41 Respiratory Rate 18 01/28/18 06:41 Blood Pressure 100/61 01/28/18 06:41 O2 Sat by Pulse Oximetry (%) Laboratory Tests 01/23/18 01/24/18 01/24/18 11:45 06:30 06:30 WBC 4.5 RBC 5.03 Hgb 14.1 Hct 42.2 MCV 83.8 MCH 28.1 MCHC 33.5 RDW 12.7 D Plt Count 183 D MPV 8.3 Sodium 140 Potassium 4.3 Chloride 105 Carbon Dioxide 29 Anion Gap 6 L BUN 13 Creatinine 0.9 Creat Clearance w eGFR > 60 Random Glucose 88 Calcium 8.4 L Total Bilirubin 0.5 AST 17 D ALT 25 D Alkaline Phosphatase 55 Total Protein 6.9 Albumin 3.5 Urine Color Yellow Urine Appearance Clear Urine pH 6.0 Ur Specific [place] 1.017 Urine Protein Negative Urine Glucose (UA) Negative Urine Ketones Negative Urine Blood Negative Urine Nitrite Negative Urine Bilirubin Negative Urine Urobilinogen Negative Ur Leukocyte Esterase Negative RPR Titer 01/24/18 06:30 WBC RBC Hgb Hct MCV MCH MCHC RDW Plt Count MPV Sodium Potassium Chloride Carbon Dioxide Anion Gap BUN Creatinine Creat Clearance w eGFR Random Glucose Calcium Total Bilirubin AST ALT Alkaline Phosphatase Total Protein Albumin Urine Color Urine Appearance Urine pH Ur Specific [place] Urine Protein Urine Glucose (UA) Urine Ketones Urine Blood Urine Nitrite Urine Bilirubin Urine Urobilinogen Ur Leukocyte Esterase RPR Titer Nonreactive LABS NOTED. Assessment: 01/28/18 17:05 COMPLETION OF DETOX REGIMEN. 01/28/18 17:07 Plan: PATIENT SCHEDULED FOR DISCHARGE FROM DETOX UNIT TODAY.
--- NOTE | 2018-01-28 17:18 | DS ---
[facility] Detox Discharge Summary Admission Date: 01/23/18 Discharge Date: 01/28/18 - History Present History: Alcohol Dependence, Cocaine Dependence, Opioid Dependence Additional Comments: PATIENT ADVISED TO CONSIDER LOCAL 12-STEP / NA / AA OUTPATIENT SUPPORT GROUPS FOR AFTERCARE. PATIENT WAS DISCHARGED FROM DETOX UNIT IN STABLE MEDICAL CONDITION. Pertinent Past History: G.E.R.D., Weight Loss, History of Seizures, Anxiety, Depression, Insomnia, Nicotine Dependence. - Physical Exam Results Vital Signs: Vital Signs Temperature 97.4 F L 01/28/18 06:41 Pulse Rate 72 01/28/18 06:41 Respiratory Rate 18 01/28/18 06:41 Blood Pressure 100/61 01/28/18 06:41 O2 Sat by Pulse Oximetry (%) Pertinent Admission Physical Exam Findings: WITHDRAWAL SYMPTOMS. Laboratory Tests 01/23/18 01/24/18 01/24/18 11:45 06:30 06:30 WBC 4.5 RBC 5.03 Hgb 14.1 Hct 42.2 MCV 83.8 MCH 28.1 MCHC 33.5 RDW 12.7 D Plt Count 183 D MPV 8.3 Sodium 140 Potassium 4.3 Chloride 105 Carbon Dioxide 29 Anion Gap 6 L BUN 13 Creatinine 0.9 Creat Clearance w eGFR > 60 Random Glucose 88 Calcium 8.4 L Total Bilirubin 0.5 AST 17 D ALT 25 D Alkaline Phosphatase 55 Total Protein 6.9 Albumin 3.5 Urine Color Yellow Urine Appearance Clear Urine pH 6.0 Ur Specific [place] 1.017 Urine Protein Negative Urine Glucose (UA) Negative Urine Ketones Negative Urine Blood Negative Urine Nitrite Negative Urine Bilirubin Negative Urine Urobilinogen Negative Ur Leukocyte Esterase Negative RPR Titer 01/24/18 06:30 WBC RBC Hgb Hct MCV MCH MCHC RDW Plt Count MPV Sodium Potassium Chloride Carbon Dioxide Anion Gap BUN Creatinine Creat Clearance w eGFR Random Glucose Calcium Total Bilirubin AST ALT Alkaline Phosphatase Total Protein Albumin Urine Color Urine Appearance Urine pH Ur Specific [place] Urine Protein Urine Glucose (UA) Urine Ketones Urine Blood Urine Nitrite Urine Bilirubin Urine Urobilinogen Ur Leukocyte Esterase RPR Titer Nonreactive LABS NOTED. - Treatment Hospital Course: Detox Protocol Followed, Detoxed Safely, Responded well, Discharged Condition Good Patient has Accepted a Rehab Referral to: PT ADVISED TO CONSIDER LOCAL 12-STEP/ NA/AA OUTPATIENT SUPPORT GROUPS. - Medication Discharge Medications: Ambulatory Orders Mirtazapine [Remeron -] 15 mg PO HS #30 tablet 01/26/18 - Diagnosis (1) Alcohol dependence with withdrawal, uncomplicated Status: Acute (2) Cocaine dependence, uncomplicated Status: Acute (3) Nicotine dependence Status: Acute Qualifiers: Nicotine product type: cigarettes Substance use status: uncomplicated Qualified Code(s): F17.210 - Nicotine dependence, cigarettes, uncomplicated (4) Opioid dependence with withdrawal Status: Acute (5) Weight loss Status: Chronic (6) Anxiety and depression Status: Suspected (7) Insomnia Status: Acute Qualifiers: Insomnia type: unspecified Qualified Code(s): G47.00 - Insomnia, unspecified (8) Substance induced mood disorder Status: Acute - AMA Did Patient Leave Against Medical Advice: No
== END 2018-01-28 09:34 | disposition home or self-care (01) | DRG 897 ==
LOC: YASAS 09:07 → Y3N 10:36
PROVIDERS: ADMIT Surgery; ATTEND Surgery
PROC: HZ2ZZZZ Detoxification Services for Substance Abuse Treatment (ICD-10-PCS; principal; 2018-01-23)
DX: F11.23 Opioid dependence with withdrawal (principal); F14.20 Cocaine dependence, uncomplicated; Z68.1 Body mass index [BMI] 19.9 or less, adult; F10.230 Alcohol dependence with withdrawal, uncomplicated; F17.210 Nicotine dependence, cigarettes, uncomplicated; F19.24 Other psychoactive substance dependence with psychoactive substance-induced mood disorder; F41.8 Other specified anxiety disorders; G47.00 Insomnia, unspecified; K21.9 Gastro-esophageal reflux disease without esophagitis; G40.909 Epilepsy, unspecified, not intractable, without status epilepticus; R63.4 Abnormal weight loss
CPT/HCPCS: 36415; 80053; 81003; 85027; 86593; 93005; 93010; J0735